=== PATIENT | male | born 1950 | race Caucasian/White ===

== ENCOUNTER → 2017-03-15 08:05 | Outpatient (CLI) | payer MEDICARE, SELFPAY ==
[2017-03-15 09:03] LABS: Basophils % 0.2 % (0.1-2.0); Eosinophils # 0.1 K/mm3 (0.0-0.4); Eosinophils % 1.5 % (0.1-12.0); Hematocrit 39.4 % (42.0-52.0); Hemoglobin 13.3 g/dL (14.1-18.0); Lymphocytes # 1.8 K/mm3 (0.7-4.5); Lymphocytes % 24.7 K/mm3 (10-50); Mean Corpuscular HGB Conc 33.7 g/dL (31.8-35.4); Mean Platelet Volume 7.7 fl (7.4-10.4); Monocytes # 0.6 K/mm3 (0.1-1.0); Monocytes % 7.6 % (1.7-9.3); Neutrophils # 4.9 K/mm3 (1.8-7.8); Platelet Count 151 K/mm3 (142-424); Red Blood Count 4.28 M/mm3 (4.60-6.20); Red Cell Distribution Width 14.2 % (11.5-17.5); White Blood Count 7.4 K/mm3 (4.8-10.8)
[2017-03-15 10:46] LABS: Alanine Aminotransferase 75 U/L (12-78); Albumin Level 3.3 gm/dL (3.4-5.0); Albumin/Globulin Ratio 1.1 (1.1-1.8); Alkaline Phosphatase 42 U/L (46-116); Anion Gap 10.2 mEq/L (5-15); Aspartate Amino Transferase 59 U/L (15-37); Bilirubin,Total 0.6 mg/dL (0.2-1.0); Blood Urea Nitrogen 23 mg/dL (7-18); Calcium 8.6 mg/dL (8.5-10.1); Carbon Dioxide 30 mmol/L (21.0-32.0); Chloride 101 mmol/L (98-107); Chol/HDL Ratio 3.4 (1-3.5); Cholesterol 169 mg/dL (140-200); Creatinine,Serum 1.02 mg/dL (0.70-1.30); Estimated Glomerular Filt Rate 73 ml/min (>60); GFR (African American) 88 ML/MIN (>60); Globulin 3.1 gm/dl (1.3-3.2); Glucose 180 mg/dL (74-106); HDL Cholesterol 50 mg/dL (27-67); LDL Cholesterol 43 mg/dL (0-130); Potassium 4.2 mmoL/L (3.5-5.1); Sodium 137 mmol/L (136-145); Thyroid Stimulating Hormone 3.51 uIU/ml (0.358-3.740); Total Protein,Serum 6.4 gm/dL (6.4-8.2); Triglycerides 380 mg/dL (30-200); VLDL Cholesterol 76 mg/dL (0-40)
[2017-03-15 13:19] LABS: Hemoglobin A1C 7.9 % (0.0-7.0)
== END ==
PROVIDERS: PCP Nurse Practitioner Family; Visit Provider Nurse Practitioner Family
DX: R06.09 Other forms of dyspnea (principal); E11.9 Type 2 diabetes mellitus without complications; E78.5 Hyperlipidemia, unspecified; I10 Essential (primary) hypertension; I25.119 Atherosclerotic heart disease of native coronary artery with unspecified angina pectoris; R60.9 Edema, unspecified
CPT/HCPCS: 36415; 80053; 80061; 83036; 84443; 85025

== ENCOUNTER → 2017-04-15 12:45 | Outpatient (CLI) | payer MEDICARE, SELFPAY ==
--- NOTE | 2017-04-15 12:50 | XR_ITS ---
XR sacroiliac joint BI min 3V CLINICAL INDICATION: ITS.REASON: SI JOINT DYSFUNCTION, HX BACK SURGERY ORDERING PHYSICIAN: Aimee Ulloa PATIENT AGE: 66 years COMPARISON: None FINDINGS: There is some mild sclerosis of the inferior aspect of the SI joint on both sides. There is no evidence of fusion of the SI joints. No lytic changes apparent. There are degenerative changes with facet arthritic changes in the lower lumbar spine and there are osteoarthritic changes of both hips as well. IMPRESSION: Mild osteoarthritis of the SI joints. Lumbar facet arthritic changes. Osteoarthritis of both hips
== END ==
PROVIDERS: PCP Internal Medicine Adolescent Medicine; Visit Provider Nurse Practitioner Family
DX: M53.3 Sacrococcygeal disorders, not elsewhere classified (principal); Z98.890 Other specified postprocedural states
CPT/HCPCS: 72202

== ENCOUNTER 2017-05-05 08:30 | Outpatient (RCR) | payer MEDICARE, SELFPAY ==
--- NOTE | 2017-04-20 15:41 | HMH.PTOPEV ---
Rehab Outpatient Evaluation Rehab OP Evaluation Start: 04/20/17 11:49 Freq: Status: Active Protocol: Document 04/20/17 11:49 CARLOS (Rec: 04/20/17 12:38 CARLOS [id number]) Electronically Signed By Dave Palma, PT 04/20/17 11:49 Outpatient Therapy Subjective History Subjective History Mr. Luis is a 66 year old male who presents to outpatient PT with LB and bilateral leg pain R>L of insidious onset since summer 2016 that progressively gotten worse. Pt. went to his MD Mar, who ordered an X-ray indicating arthritic changes, and recommended PT. PMH include open heart (1997), lumbar spine L2-L3 (1996), and knee (2001) surgeries. Pt. is currently taking pain medication that provides some relief. Pt. will benefit from skilled outpatient PT on BLE/ lumbar stretching and strengthening, modalities, and pain controlling interventions. Chief Complaint Pain Symptom Type Ache Sharp Dull Numbness Tingling Symptoms Relieved By Heat Prescription Meds Symptoms Aggravated By Sitting Standing Bending/Stooping Physical Activity Twisting Walking Prior Functional Limitations None Current Functional Limitations Lifting Housework Driving Sleeping Standing Sitting Walking Stairs Bending/Stooping Symptom Description Constant but Variable Level of pain today (0-10) 2 Pain scale - at its best (0-10) 1 Pain scale - at its worst (0-10) 9 Lumbopelvic Eval Posture Thoracic Spine Posture Standing Position Increased Kyphosis Lumbar Spine Posture Standing Position Flattened Decreased Lordosis Assistive device
== END 2017-05-05 08:31 | disposition home or self-care (01) ==
LOC: PT 08:30
PROVIDERS: Family Provider Internal Medicine Adolescent Medicine; PCP Internal Medicine Adolescent Medicine; Visit Provider Nurse Practitioner Family
DX: M53.3 Sacrococcygeal disorders, not elsewhere classified (principal)
CPT/HCPCS: 97010; 97014; 97110; G0283

== ENCOUNTER → 2017-07-28 13:34 | Outpatient (CLI) | payer MEDICARE, SELFPAY | PROVIDERS: Visit Provider Urology | DX: R97.20 Elevated prostate specific antigen [PSA] (principal) | CPT/HCPCS: 36415; G0103 ==

== ENCOUNTER → 2018-03-17 07:27 | Outpatient (CLI) | payer MEDICARE, SELFPAY ==
[2018-03-17 09:20] LABS: Hemoglobin A1C 9.9 % (0.0-7.0)
[2018-03-17 09:48] LABS: Alanine Aminotransferase 60 U/L (12-78); Albumin Level 3.6 gm/dL (3.4-5.0); Albumin/Globulin Ratio 1.1 (1.1-1.8); Alkaline Phosphatase 46 U/L (46-116); Anion Gap 14.1 mEq/L (5-15); Aspartate Amino Transferase 25 U/L (15-37); Blood Urea Nitrogen 20 mg/dL (7-18); Calcium 9.3 mg/dL (8.5-10.1); Carbon Dioxide 26 mmol/L (21.0-32.0); Chloride 98 mmol/L (98-107); Chol/HDL Ratio 7.3 (1-3.5); Cholesterol 299 mg/dL (140-200); Creatinine,Serum 0.92 mg/dL (0.70-1.30); Estimated Glomerular Filt Rate 82 ml/min (>60); GFR (African American) 99 ML/MIN (>60); Globulin 3.2 gm/dl (1.3-3.2); Glucose 356 mg/dL (74-106); HDL Cholesterol 41 mg/dL (27-67); LDL Cholesterol 192 mg/dL (0-130); Potassium 4.1 mmoL/L (3.5-5.1); Prostate Specific Ag Screen 0.4 ng/mL (0.0-4.0); Sodium 134 mmol/L (136-145); Thyroid Stimulating Hormone 2.83 uIU/ml (0.358-3.740); Total Protein,Serum 6.8 gm/dL (6.4-8.2); Triglycerides 328 mg/dL (30-200); VLDL Cholesterol 66 mg/dL (0-40)
[2018-03-17 10:00] LABS: Basophils % 0.2 % (0.1-2.0); Eosinophils # 0.1 K/mm3 (0.0-0.4); Eosinophils % 1.1 % (0.1-12.0); Hematocrit 46.2 % (42.0-52.0); Hemoglobin 15.1 g/dL (14.1-18.0); Lymphocytes % 29.5 % (10-50); Mean Corpuscular HGB Conc 32.6 g/dL (31.8-35.4); Mean Corpuscular Hemoglobin 30.8 pg (27.0-31.2); Mean Corpuscular Volume 94.4 fl (80-94); Monocytes # 0.6 K/mm3 (0.1-1.0); Monocytes % 8.2 % (1.7-9.3); Neutrophils # 4.1 K/mm3 (1.8-7.8); Neutrophils % 61.1 % (37.0-80.0); Platelet Count 148 K/mm3 (142-424); Red Blood Count 4.89 M/mm3 (4.60-6.20); White Blood Count 6.7 K/mm3 (4.8-10.8)
[2018-03-18 08:22] LABS: Creatinine, Urine 82.4 mg/dL (Not Estab.)
== END ==
PROVIDERS: Visit Provider Nurse Practitioner Family
DX: R60.9 Edema, unspecified (principal); E11.9 Type 2 diabetes mellitus without complications; E78.5 Hyperlipidemia, unspecified; R35.0 Frequency of micturition; Z12.5 Encounter for screening for malignant neoplasm of prostate
CPT/HCPCS: 36415; 80053; 80061; 82043; 82570; 83036; 84443; 85025; G0103

== ENCOUNTER → 2018-06-08 07:17 | Outpatient (CLI) | payer MEDICARE, SELFPAY ==
[2018-06-08 08:50] LABS: Anion Gap 13.4 mEq/L (5-15); Blood Urea Nitrogen 25 mg/dL (7-18); Calcium 9.3 mg/dL (8.5-10.1); Carbon Dioxide 29 mmol/L (21.0-32.0); Chloride 100 mmol/L (98-107); Chol/HDL Ratio 7.6 (1-3.5); Cholesterol 298 mg/dL (140-200); Creatinine,Serum 1.08 mg/dL (0.70-1.30); Estimated Glomerular Filt Rate 68 ml/min (>60); GFR (African American) 82 ML/MIN (>60); Glucose 186 mg/dL (74-106); HDL Cholesterol 39 mg/dL (27-67); Potassium 4.4 mmoL/L (3.5-5.1); Sodium 138 mmol/L (136-145)
[2018-06-08 08:52] LABS: Triglycerides 545 mg/dL (30-200)
[2018-06-08 16:17] LABS: Hemoglobin A1C 7.6 % (0.0-7.0)
== END ==
PROVIDERS: Visit Provider Nurse Practitioner Family
DX: E11.65 Type 2 diabetes mellitus with hyperglycemia (principal); E78.2 Mixed hyperlipidemia; R60.9 Edema, unspecified
CPT/HCPCS: 36415; 80048; 80061; 83036

== ENCOUNTER → 2018-10-30 10:31 | Outpatient (CLI) | payer MEDICARE, SELFPAY ==
--- NOTE | 2018-10-30 10:37 | CA_ITS ---
APPROVED REPORT Right Lower Extremity Venous Study for DVT. Tooth Polisher: ISAIAH Indications Lower Extremity Pain: Right Lower Extremity Edema: Bilateral Risk Factors Prior Phlebitis/DVT Past History DVT : Vein Imaging CFV (R): compressive, spontaneous, phasic, augmentation FEM (R): compressive, spontaneous, phasic, augmentation POP (R): compressive, spontaneous, phasic, augmentation PTV (R): Non-Compressible, Thrombus GSV (R): compressive, spontaneous, phasic, augmentation Peroneals (R):Non-Compressible, Thrombus GAS (R): Non-Compressible, Thrombus Findings Thrombus seen right posterior tibia vein and right peroneal vein other deep veins are negative. There is also thrombus seen in the superficial calf veins. Conclusion Thrombus seen right posterior tibia vein and right peroneal vein other deep veins are negative. There is also thrombus seen in the superficial calf veins. Critical Notification Critical Value: Yes Physician Notified Date: 10/30/2018 Time: 11:00 Physician Name: Lillykasie Ulloa Electronically signed by : Piyush Freeman MD 11/01/2018 19:44:53
--- NOTE | 2018-10-30 11:00 | XR_ITS ---
PROCEDURE: XR HIP RT 2-3V W/PELVIS CLINICAL INDICATION: RT HIP PAIN COMPARISON: No exams were available for comparison FINDINGS: There are moderate osteoarthritic changes of both hips as seen on the AP view of the pelvis. AP and abduction views of the right hip show osteoarthritic change. No fracture or dislocation. No lytic or blastic change. There is generalized vascular calcification. IMPRESSION: Osteoarthritis of the hips Dictated by: Piyush Freeman MD 10/30/2018 11:38 Electronically signed by Piyush Freeman MD in [place] 10/30/2018 11:38
[2018-10-30 13:23] LABS: Basophils % 0.1 % (0.1-2.0); Eosinophils # 0.1 K/mm3 (0.0-0.4); Eosinophils % 1.7 % (0.1-12.0); Hematocrit 45.8 % (42.0-52.0); Hemoglobin 15.4 g/dL (14.1-18.0); Lymphocytes # 1.5 K/mm3 (0.7-4.5); Lymphocytes % 20.9 % (10-50); Mean Corpuscular HGB Conc 33.7 g/dL (31.8-35.4); Mean Corpuscular Hemoglobin 31.8 pg (27.0-31.2); Mean Corpuscular Volume 94.4 fl (80-94); Mean Platelet Volume 7.2 fl (7.4-10.4); Monocytes # 0.6 K/mm3 (0.1-1.0); Monocytes % 7.7 % (1.7-9.3); Neutrophils % 69.6 % (37.0-80.0); Platelet Count 146 K/mm3 (142-424); Red Blood Count 4.85 M/mm3 (4.60-6.20); Red Cell Distribution Width 14.5 % (11.5-17.5); White Blood Count 7.2 K/mm3 (4.8-10.8)
[2018-10-30 13:31] LABS: Alanine Aminotransferase 36 U/L (12-78); Albumin Level 3.5 gm/dL (3.4-5.0); Albumin/Globulin Ratio 1.1 (1.1-1.8); Alkaline Phosphatase 47 U/L (46-116); Anion Gap 11.6 mEq/L (5-15); Aspartate Amino Transferase 21 U/L (15-37); Bilirubin,Total 0.6 mg/dL (0.2-1.0); Blood Urea Nitrogen 17 mg/dL (7-18); Calcium 9.3 mg/dL (8.5-10.1); Carbon Dioxide 30 mmol/L (21.0-32.0); Chloride 103 mmol/L (98-107); Estimated Glomerular Filt Rate 84 ml/min (>60); GFR (African American) 101 ML/MIN (>60); Globulin 3.3 gm/dl (1.3-3.2); Glucose 160 mg/dL (74-106); Potassium 4.6 mmoL/L (3.5-5.1); Sodium 140 mmol/L (136-145); Total Protein,Serum 6.8 gm/dL (6.4-8.2)
[2018-10-30 13:44] LABS: Activated Partial Thrombo Time 24.9 seconds (23.6-34.0); INR 0.97 (0.9-1.1); Prothrombin Time 10.1 seconds (9.4-11.8)
[2018-11-02 07:09] LABS: Anti-Thrombin III Antigen 84 % (72-124); Protein C Antigen 96 % (60-150); Protein C Functional 105 % (73-180); Protein S Antigen, Total 102 % (60-150); Protein S Functional 124 % (63-140); Protein S, Free 130 % (57-157)
== END ==
PROVIDERS: PCP Internal Medicine Adolescent Medicine; Visit Provider Nurse Practitioner Family
DX: M25.551 Pain in right hip (principal); M79.661 Pain in right lower leg; I82.431 Acute embolism and thrombosis of right popliteal vein; Z86.718 Personal history of other venous thrombosis and embolism
CPT/HCPCS: 36415; 73502; 80053; 81241; 85025; 85301; 85302; 85305; 85306; 85610; 85730; 93971

== ENCOUNTER → 2019-02-23 07:22 | Outpatient (CLI) | payer MEDICARE, SELFPAY ==
[2019-02-23 08:04] LABS: Basophils % 0.2 % (0.1-2.0); Eosinophils # 0.2 K/mm3 (0.0-0.4); Eosinophils % 1.7 % (0.1-12.0); Hematocrit 46.5 % (42.0-52.0); Hemoglobin 15.5 g/dL (14.1-18.0); Lymphocytes % 22.4 % (10-50); Mean Corpuscular HGB Conc 33.2 g/dL (31.8-35.4); Mean Corpuscular Hemoglobin 28.6 pg (27.0-31.2); Mean Corpuscular Volume 86.2 fl (80-94); Mean Platelet Volume 8.2 fl (7.4-10.4); Monocytes # 0.6 K/mm3 (0.1-1.0); Monocytes % 6.9 % (1.7-9.3); Neutrophils # 6.1 K/mm3 (1.8-7.8); Neutrophils % 68.9 % (37.0-80.0); Platelet Count 195 K/mm3 (142-424); Red Cell Distribution Width 14.3 % (11.5-17.5); White Blood Count 8.9 K/mm3 (4.8-10.8)
[2019-02-23 09:21] LABS: Alanine Aminotransferase 26 U/L (12-78); Albumin Level 3.5 gm/dL (3.4-5.0); Alkaline Phosphatase 62 U/L (46-116); Anion Gap 12.3 mEq/L (5-15); Aspartate Amino Transferase 7 U/L (15-37); Bilirubin,Total 0.4 mg/dL (0.2-1.0); Blood Urea Nitrogen 22 mg/dL (7-18); Calcium 8.9 mg/dL (8.5-10.1); Carbon Dioxide 29 mmol/L (21.0-32.0); Chloride 102 mmol/L (98-107); Chol/HDL Ratio 6.2 (1-3.5); Cholesterol 261 mg/dL (140-200); Creatinine,Serum 0.91 mg/dL (0.70-1.30); Estimated Glomerular Filt Rate 82 ml/min (>60); GFR (African American) 100 ML/MIN (>60); Globulin 3.4 gm/dl (1.3-3.2); Glucose 201 mg/dL (74-106); HDL Cholesterol 42 mg/dL (27-67); LDL Cholesterol 166 mg/dL (0-130); Potassium 4.3 mmoL/L (3.5-5.1); Sodium 139 mmol/L (136-145); Thyroid Stimulating Hormone 2.71 uIU/ml (0.358-3.740); Total Protein,Serum 6.9 gm/dL (6.4-8.2); Triglycerides 267 mg/dL (30-200); VLDL Cholesterol 53 mg/dL (0-40)
[2019-02-23 11:22] LABS: Hemoglobin A1C 8.1 % (0.0-7.0)
[2019-02-24 09:10] LABS: Creatinine, Urine 58.9 mg/dL (Not Estab.); Microalbumin, Urine <3.0 ug/mL (Not Estab.)
== END ==
PROVIDERS: Visit Provider Nurse Practitioner Family
DX: E11.65 Type 2 diabetes mellitus with hyperglycemia (principal); E78.2 Mixed hyperlipidemia; I10 Essential (primary) hypertension; M25.50 Pain in unspecified joint; N40.0 Benign prostatic hyperplasia without lower urinary tract symptoms; I82.431 Acute embolism and thrombosis of right popliteal vein
CPT/HCPCS: 36415; 80053; 80061; 82043; 82570; 83036; 84153; 84443; 85025

== ENCOUNTER → 2019-03-09 08:57 | Outpatient (CLI) | payer MEDICARE, SELFPAY ==
--- NOTE | 2019-03-09 09:02 | XR_ITS ---
PROCEDURE: XR HAND LT MIN 3V CLINICAL INDICATION: thumb pain COMPARISON: XR WRIST LT MIN 3V from 03/09/2019 FINDINGS: No fracture or dislocation. No lytic or blastic change. There is normal mineralization. There are mild osteoarthritic changes at the 1st metacarpal-carpal junction and the 1st metacarpophalangeal junction as well as the interphalangeal joint of the. Mild osteoarthritis also involves the PIP joints of the fingers. A small well-circumscribed calcific density is present along the ulnar aspect of the PIP joint of the 4th digit and could be due to an old fracture. IMPRESSION: Osteoarthritic changes as described above of the hand and wrist Dictated by: Piyush Freeman MD 03/09/2019 09:44 Electronically signed by Piyush Freeman MD in [place] 03/09/2019 09:44
== END ==
PROVIDERS: PCP Nurse Practitioner Family; Visit Provider Orthopaedic Surgery
DX: M25.532 Pain in left wrist (principal); M79.642 Pain in left hand
CPT/HCPCS: 73110; 73130

== ENCOUNTER → 2019-04-16 09:59 | Outpatient (CLI) | payer MEDICARE, SELFPAY ==
--- NOTE | 2019-04-16 10:03 | XR_ITS ---
PROCEDURE: XR HIP LT 2-3V W/PELVIS CLINICAL INDICATION: hip pain Left hip pain COMPARISON: XR HIP RT 2-3V W/PELVIS from 10/30/2018 FINDINGS: An AP view of the pelvis shows mild bilateral osteoarthritis of the hips with bilateral femoral artery calcification. No acute fracture or dislocation. No lytic or blastic change. There are degenerative changes in the lumbar spine IMPRESSION: Mild osteoarthritis of the hips Dictated by: Piyush Freeman MD 04/16/2019 10:48 Electronically signed by Piyush Freeman MD in [place] 04/16/2019 10:48
== END ==
PROVIDERS: PCP Nurse Practitioner Family; Visit Provider Orthopaedic Surgery
DX: M25.552 Pain in left hip (principal)
CPT/HCPCS: 73502

== ENCOUNTER → 2019-09-14 07:12 | Outpatient (CLI) | payer MEDICARE, SELFPAY ==
[2019-09-14 07:38] LABS: Basophils % 0.3 % (0.1-2.0); Eosinophils # 0.2 K/mm3 (0.0-0.4); Eosinophils % 2.3 % (0.1-12.0); Hematocrit 47.1 % (42.0-52.0); Hemoglobin 16.3 g/dL (14.1-18.0); Lymphocytes # 2.2 K/mm3 (0.7-4.5); Lymphocytes % 29.7 % (10-50); Mean Corpuscular HGB Conc 34.6 g/dL (31.8-35.4); Mean Corpuscular Hemoglobin 30.6 pg (27.0-31.2); Mean Corpuscular Volume 88.2 fl (80-94); Mean Platelet Volume 7.9 fl (7.4-10.4); Monocytes # 0.5 K/mm3 (0.1-1.0); Monocytes % 6.2 % (1.7-9.3); Neutrophils # 4.5 K/mm3 (1.8-7.8); Neutrophils % 61.6 % (37.0-80.0); Platelet Count 148 K/mm3 (142-424); Red Blood Count 5.34 M/mm3 (4.60-6.20); Red Cell Distribution Width 14.5 % (11.5-17.5); White Blood Count 7.3 K/mm3 (4.8-10.8)
[2019-09-14 07:52] LABS: Creatinine,Urine Random 64 mg/dL (Not Estab.)
[2019-09-14 07:54] LABS: Microalbumin/Creatinine Ratio 11.2
[2019-09-14 08:27] LABS: Chloride 100 mmol/L (98-107); Sodium 140 mmol/L (136-145)
[2019-09-14 08:29] LABS: Blood Urea Nitrogen 20 mg/dl (9-20); Estimated Glomerular Filt Rate 83 ml/min (>60); GFR (African American) 101 ML/MIN (>60)
[2019-09-14 08:30] LABS: Alanine Aminotransferase 41 U/L (12-78); Albumin Level 4.2 g/dl (3.5-5.0); Albumin/Globulin Ratio 1.5 (1.1-1.8); Alkaline Phosphatase 57 U/L (38-126); Aspartate Amino Transferase 30 U/L (17-59); Bilirubin,Total 0.6 mg/dl (0.2-1.3); Calcium 9.6 mg/dl (8.4-10.2); Carbon Dioxide 32 mmol/L (22.0-30.0); Chol/HDL Ratio 6.1 (1-3.5); Cholesterol 289 mg/dl (140-200); Globulin 2.8 g/dL (1.3-3.2); Glucose 202 mg/dl (74-100); HDL Cholesterol 47 mg/dl (40-60)
[2019-09-14 08:36] LABS: Triglycerides 477 mg/dl (30-150)
[2019-09-14 09:01] LABS: Hemoglobin A1C 8.7 % (4.0-6.0)
[2019-09-14 09:28] LABS: Prostate Specific Ag Screen 3.9 ng/ml (0.0-4.0)
[2019-09-14 09:40] LABS: Direct LDL Cholesterol 179.98 mg/dL (100-129)
== END ==
PROVIDERS: Visit Provider Nurse Practitioner Family
DX: E11.65 Type 2 diabetes mellitus with hyperglycemia (principal); E78.2 Mixed hyperlipidemia; I10 Essential (primary) hypertension; N40.0 Benign prostatic hyperplasia without lower urinary tract symptoms; R97.20 Elevated prostate specific antigen [PSA]; Z79.84 Long term (current) use of oral hypoglycemic drugs; Z86.718 Personal history of other venous thrombosis and embolism; Z12.5 Encounter for screening for malignant neoplasm of prostate
CPT/HCPCS: 36415; 80053; 80061; 82043; 82570; 83036; 85025; G0103

== ENCOUNTER → 2020-01-08 07:03 | Outpatient (CLI) | payer MEDICARE, SELFPAY ==
[2020-01-08 08:05] LABS: Chloride 101 mmol/L (98-107); Sodium 142 mmol/L (136-145)
[2020-01-08 08:07] LABS: Alanine Aminotransferase 28 U/L (12-78); Albumin Level 4.5 g/dl (3.5-5.0); Alkaline Phosphatase 59 U/L (38-126); Aspartate Amino Transferase 23 U/L (17-59); Bilirubin,Total 0.7 mg/dl (0.2-1.3); Blood Urea Nitrogen 17 mg/dl (9-20); Estimated Glomerular Filt Rate 74 ml/min (>60); GFR (African American) 89 ML/MIN (>60)
[2020-01-08 08:08] LABS: Albumin/Globulin Ratio 1.6 (1.1-1.8); Calcium 9.9 mg/dl (8.4-10.2); Carbon Dioxide 34 mmol/L (22.0-30.0); Chol/HDL Ratio 3.3 (1-3.5); Cholesterol 200 mg/dl (140-200); Globulin 2.9 g/dL (1.3-3.2); Glucose 139 mg/dl (74-100); HDL Cholesterol 60 mg/dl (40-60); Total Protein,Serum 7.4 g/dl (6.3-8.2); Triglycerides 190 mg/dl (30-150); VLDL Cholesterol 38 mg/dL (0-40)
[2020-01-08 08:19] LABS: Direct LDL Cholesterol 112.77 mg/dL (100-129)
[2020-01-08 09:11] LABS: Prostate Specific Ag, Diagnost 2.78 ng/ml (0.0-4.0)
[2020-01-08 09:15] LABS: Hemoglobin A1C 6.2 % (4.0-6.0)
== END ==
PROVIDERS: Visit Provider Nurse Practitioner Family
DX: E78.2 Mixed hyperlipidemia (principal); E11.65 Type 2 diabetes mellitus with hyperglycemia; R97.20 Elevated prostate specific antigen [PSA]
CPT/HCPCS: 36415; 80053; 80061; 83036; 84153

== ENCOUNTER → 2020-02-20 10:08 | Outpatient (CLI) | payer MEDICARE, SELFPAY ==
--- NOTE | 2020-02-20 10:11 | US_ITS ---
APPROVED REPORT Exam Type: Lower Extremity Segmental Pressures Solder Technician: Jelena Oneal RVT Indications Claudication: Bilaterally Rest Pain: Bilaterally Numbness/Tingling Edema History of Smoking CAD Risk Factors Hypertension CAD Hyperlipidemia History of Smoking Pressures/Indices Right Indices Left Indices Brachial 140.00 mmHg Brachial 141.00 mmHg Low Thigh 107.00 mmHg 0.76 Low Thigh 98.00 mmHg 0.70 Calf 107.00 mmHg 0.76 Calf 99.00 mmHg 0.70 Ankle(PT) 111.00 mmHg 0.79 Ankle(PT) 98.00 mmHg 0.70 Ankle(DP) 89.00 mmHg 0.63 Ankle(DP) 118.00 mmHg 0.84 Digit 87.00 mmHg 0.62 Digit 86.00 mmHg 0.61 Findings RT TAMMY:0.79 LT TAMMY:0.70 RT TBI:0.62 LT TBI:0.61 NORMAL WAVEFORMS BILATERAL DIMINISHED PULSES ON THE LEFT Conclusion RT TAMMY:0.79 LT TAMMY:0.70 RT TBI:0.62 LT TBI:0.61 NORMAL WAVEFORMS BILATERAL DIMINISHED PULSES ON THE LEFT Low bilateral ABIc/w moderate arterial disease Electronically signed by : Piyush Freeman MD 02/25/2020 17:32:27
== END ==
PROVIDERS: PCP Nurse Practitioner Family; Visit Provider Nurse Practitioner Family
DX: I73.9 Peripheral vascular disease, unspecified (principal)
CPT/HCPCS: 93923

== ENCOUNTER → 2020-05-14 08:22 | Outpatient (CLI) | payer MEDICARE, SELFPAY ==
--- NOTE | 2020-05-14 08:29 | XR_ITS ---
PROCEDURE: XR HAND RT MIN 3V CLINICAL INDICATION: RT hand/5th digit pain COMPARISON: CR XR HAND LT MIN 3V from 03/09/2019 FINDINGS: No fracture or dislocation. No lytic or blastic change. There is normal mineralization. Hyper trophic changes are present involving the distal aspect of the 3rd metacarpal. Osteophyte formation is present at this region. Mild osteoarthritic change at the 3rd metacarpophalangeal joint. The remaining joint spaces are well preserved. Other findings:None. IMPRESSION: Osteoarthritic change at the 3rd metacarpophalangeal joint otherwise negative Dictated by: Piyush Freeman MD 05/14/2020 09:24 Piyush Freeman MD in [place] 05/14/2020 09:24
[2020-05-14 10:01] LABS: Coronavirus 19 IgG Antibody Positive (Negative); Coronavirus 19 IgM Antibody Negative (Negative)
== END ==
PROVIDERS: Internal Medicine Gastroenterology; PCP Nurse Practitioner Family; Visit Provider Orthopaedic Surgery
DX: M79.641 Pain in right hand (principal); Z01.818 Encounter for other preprocedural examination; Z20.822 Contact with and (suspected) exposure to COVID-19
CPT/HCPCS: 36415; 73130; 86328

== ENCOUNTER 2020-05-16 09:58 | Day surgery (SDC) | payer MEDICARE, SELFPAY ==
[2020-05-13 13:37] VITALS: BMI 36.8
[2020-05-16] VITALS (8 sets, daily range): BP systolic 107–154; BP diastolic 55–81; PULSE 57–68; RESP 14–18; TEMP 36.4–37.2; O2SAT 95–99
[2020-05-16 10:25] LABS: POC Glucose,Bedside 150 (70-110)
--- NOTE | 2020-05-16 10:49 | HMH.ANESCL ---
[facility] Anesthesia Checklist - Patient Identification Patient Identification: Arm Band - Structural Data Admitted From: Home Planned Operative Procedure/s: EGD, colonoscopy Consent for Planned Operative Procedure(s) Verified: Yes - NPO Status Verified Time NPO: 00:00 - Airway Assessment Dentition: Good Dentition - Neurological Assessment Level of Consciousness: Awake Hx Seizures: No Numbness or tingling in extremities: No - Anesthesia Plan Anesthesia Risk discussed: Yes Anesthesia Plan: Verified ASA Class: III Anesthesia Type: MAC [facility] History I have reviewed the patient's past medical history: Yes Medical History: Reports:: Coronary Artery Disease, Diabetes Mellitus Type 2, Hyperlipidemia, Hypertension, Myocardial Infarction Denies:: Cancer, Diabetes Mellitus Type 1, Internal Pacemaker, MRSA, Seizures *Have you ever received a pneumonia vaccine?: Yes *Have you received a flu vaccine this season?: Yes Other Medical History: Reports: Arthritis Anesthesia experience/problems:: None Laterality Cases: Bilateral: ACL Repair Other Surgeries: Yes: No Previous Surgery, Colonoscopy, Other. No: Pacemaker Amputation: No Fractures: No - *Social History Last grade of school completed: High school graduate Smoking Status: Never smoker Alcohol Intake: current Alcohol Intake Frequency:: 0-2 drinks per day Substance Use Type: denies use *Occupational Status:: retired Housing: house Household Members: spouse *Travel in the last 8 weeks: None Family Hx:: No significant family history
--- NOTE | 2020-05-16 11:13 | HMH.PROC ---
[facility] Procedure Note Procedure Note:: Upper Endoscopy Procedure Report: Esophagogastroduodenoscopy with cold biopsies and TTS balloon dilation Endoscopost: Shahzad Lanza II, MD Referring Physician: Bernard Doan MD/VERO Garcia/Frantz Naidu M.D. Date of Procedure: May 16, 2020 Equipment: Olympus GIF 190 standard upper endoscope Sedation: MAC sedation Indications: Mr. Luis is a 69-year-old gentleman who has had both cardiac and noncardiac chest pain in the past. He does have a history of coronary artery disease with coronary stent placement. He is on Xarelto. Recently, he did see cardiology who opted to advise him to do EGD before heart catheterization. The patient does report exertional chest pain and some associated shortness of breath. He does state that he had a normal EKG and nuclear cardiac stress test within the last couple of months. Dr. Doan recommended EGD prior to catheterization. The patient does report some belching and bloating. He has some dysphagia to solids and liquids. He has some globus sensation. He reports no heartburn or significant reflux. He did have an EGD with ar and October 2016 and had esophageal dyskinesia. Procedure: Prior to the procedure, a history and physical exam was performed, and patient's medications and allergies were reviewed. The risks, benefits and alternatives of the sedation and procedure were discussed with the patient. All questions were answered and informed consent was obtained. The patient was brought to the procedure room. Patient identification and proposed procedure were verified by the physician and the nurse. The patient was placed in a left lateral decubitus position and the scope was passed under direct vision. Throughout the procedure, the patient's blood pressure, pulse, and oxygen saturations were monitored continuously. The upper GI endoscopy was accomplished without difficulty. The patient tolerated the procedure well. Findings: The scope was passed directly into the upper esophagus and advanced to the third portion of the duodenum. The post bulbar duodenum and duodenal bulb were normal with normal mucosa and conniventes. The scope was withdrawn through a normal duodenal bulb and pylorus into the stomach. There was evidence of bile reflux with moderate linear reactive gastropathy of the antrum and body of the stomach. There was some chronic gastritis of the body and fundus of the stomach. Upon retroflexion there was a very small 1 to 2 cm sliding hiatal hernia. 2 biopsies were taken in the antrum and along the lesser curvature for histology to rule out gastritis and/or H pylori. The scope was then withdrawn into the esophagus. There was a serrated Z-line with a single tongue of salmon-colored mucosa that was biopsied to rule out intestinal metaplasia. There were strong tertiary contractions and evidence of moderate esophageal dysmotility. The entire esophagus was dilated to 60 Japanese/20 mm with a TTS hydrostatic balloon. There was some spasm at the cricopharyngeus. The remainder of the esophageal mucosa was normal. Impression: 1. 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 Bile reflux with linear reactive gastropathy and chronic gastritis Plan: The patient does likely have some esophageal dyskinesia. However, his exertional chest pain that has worsened with associated shortness of breath is typically cardiac. I did indicate to the patient that we typically would like to rule this out before endoscopy with cardiac catheterization. I would recommend that he see cardiology locally or with Dr. Doan to rule out unstable angina especially with his history of coronary disease/CASHD. We will discuss additional dietary measures and treatment of his functional GERD and esophageal spasm. I will proceed with screening colonoscopy. I would like for him to return on his Xarelto/anticoagulatio
--- NOTE | 2020-05-16 11:36 | HMH.PROC ---
[facility] Procedure Note Procedure Note:: Colonoscopy Procedure Report: Colonoscopy with cold snare polypectomy Endoscopist: Shahzad Lanza II, MD Referring physician: VERO Garcia/Frantz Naidu M.D. Date of Procedure: May 16, 2020 Equipment: Olympus 190 variable stiffness pediatric colonoscope Sedation: MAC sedation Indication: Mr. Luis is a 69-year-old gentleman who is here for follow-up screening/surveillance colonoscopy. The patient does have a personal history of adenomatous colon polyps. His last colonoscopy and October 2016 revealed 7 polyps (tubular adenomas x7) which were removed. The patient does have some obstipation. The patient does report some bloating and belching. He reports no rectal bleeding, abdominal pain, weight loss or family history of colon cancer. Procedure: Prior to the procedure, a history and physical exam was performed, and patient's medications and allergies were reviewed. The risks, benefits and alternatives of the sedation and procedure were discussed with the patient. All questions were answered and informed consent was obtained. The patient was brought to the procedure room. Patient identification and proposed procedure were verified by the physician and the nurse. The patient was placed in a left lateral decubitus position and the scope was passed under direct vision. Throughout the procedure, the patient's blood pressure, pulse, and oxygen saturations were monitored continuously. The colonoscopy was accomplished without difficulty. The patient tolerated the procedure well. Findings: On digital rectal examination there was normal rectal tone. There were no external hemorrhoids. The colonoscope was introduced through the anal canal to the rectum and advanced to the cecum. The ileocecal valve and appendiceal orifice were identified. The scope was advanced a short distance into the ileum which appeared grossly normal. The scope was then withdrawn into the colon. There were a total of 3 polyps (cecum x2 (3 and 4 mm) and descending x1 (3 mm)) which were all removed via cold snare polypectomy. The remainder of the cecum, ascending, transverse, descending, sigmoid and rectum were grossly normal. There were no other mucosal abnormalities. Upon retroflexion within the rectum there were grade 1-2 internal hemorrhoids.The preparation was excellent throughout with [place] Preparation Score of 9. The cecal time was 12 minutes. Impression: 1. Diminutive colonic polyps x3 2. Grade 1-2 internal hemorrhoids Plan: I will follow up the polyp histology. Based upon his cardiac disease and comorbidities, we will need to determine whether further surveillance is warranted. I would encourage a fiber bowel regimen on a long-term daily maintenance basis.
--- NOTE | 2020-05-16 11:38 | HMH.ANESI ---
[facility] Anesthesia Record Part I Intake, IV Amount: 700 Estimated blood loss (mL): 0 Urine output (mL): 0 Blood Pressure: 130/68 SaO2: 97 Pulse Rate: 62 Respiratory Rate: 14 Temperature: 98.9 F Patient is:: Awake Stable to PACU at:: 11:34
--- NOTE | 2020-05-16 13:19 | P.PN_ITS ---
[facility] Anesthesia Record Part II Discharge Time: 12:24 Destination: Surgical Day Care (OP Surgery) PACU nurse assessment reviewed?: Yes Patient Condition:: Good Anesthesia Complications:: None Swallowing reflex intact?: Yes Cyanosis?: No Blood Pressure: 131/67 Pulse Rate: 57 Temperature: 98.2 F Mental Status: Alert & Oriented Pain level:: 0 Nausea and/or vomitting:: None Intake, IV Amount: 700
== END 2020-05-16 12:48 | disposition home or self-care (01) ==
LOC: OUTP 09:59
PROVIDERS: PCP Nurse Practitioner Family; Visit Provider Internal Medicine Gastroenterology
PROC: 0DJ08ZZ Inspection of Upper Intestinal Tract, Via Natural or Artificial Opening Endoscopic (ICD-10-PCS; CPT 43235; principal; 2020-05-16 11:00)
DX: Z12.11 Encounter for screening for malignant neoplasm of colon (principal); Z86.010 Personal history of colon polyps; K63.5 Polyp of colon; K64.0 First degree hemorrhoids; K21.9 Gastro-esophageal reflux disease without esophagitis; K22.4 Dyskinesia of esophagus; J39.2 Other diseases of pharynx; K31.9 Disease of stomach and duodenum, unspecified; K29.50 Unspecified chronic gastritis without bleeding; I25.10 Atherosclerotic heart disease of native coronary artery without angina pectoris; E11.9 Type 2 diabetes mellitus without complications; I10 Essential (primary) hypertension
CPT/HCPCS: 43239; 43249; 45385; 82962; 88305; C1726

== ENCOUNTER → 2020-08-14 09:38 | Outpatient (CLI) | payer MEDICARE, SELFPAY ==
--- NOTE | 2020-08-14 09:42 | XR_ITS ---
PROCEDURE: XR WRIST LT MIN 3V CLINICAL INDICATION: LT wrist pain COMPARISON: CR XR WRIST LT MIN 3V from 03/09/2019 FINDINGS: No fracture or dislocation. No lytic or blastic change. There is normal mineralization. The joint spaces are well-preserved. No significant degenerative/arthritic changes. No erosive changes evident. Other findings:None. IMPRESSION: No acute findings. Dictated by: Piyush Freeman MD 08/14/2020 14:53 Piyush Freeman MD in [place] 08/14/2020 14:53
== END ==
PROVIDERS: PCP Nurse Practitioner Family; Visit Provider Orthopaedic Surgery
DX: M25.532 Pain in left wrist (principal)
CPT/HCPCS: 73110

== ENCOUNTER → 2020-08-18 16:19 | Outpatient (CLI) | payer MEDICARE, SELFPAY ==
--- NOTE | 2020-08-18 | XR_ITS ---
PROCEDURE: XR SHOULDER RT MIN 2V CLINICAL INDICATION: ACUTE RIGHT SHOULDER PAIN COMPARISON: CR [id number] VIEWS from 09/11/2013 FINDINGS: No fracture or dislocation. No lytic or blastic change. There is normal mineralization. Osteoarthritic changes are present involving the acromioclavicular and glenohumeral joint. Prominent bony hypertrophy is present along the inferior aspect of the AC joint especially the distal clavicle and there is bony hypertrophy along the greater tuberosity region of the humerus with subacromial stenosis. The Other findings:None. IMPRESSION: Osteoarthritis with subacromial stenosis Dictated by: Piyush Freeman MD 08/18/2020 16:55 Piyush Freeman MD in [place] 08/18/2020 16:55
== END ==
PROVIDERS: PCP Nurse Practitioner Family; Visit Provider Nurse Practitioner Family
DX: G89.11 Acute pain due to trauma (principal); M25.511 Pain in right shoulder
CPT/HCPCS: 73030

== ENCOUNTER → 2020-08-21 10:23 | Outpatient (CLI) | payer MEDICARE, SELFPAY ==
--- NOTE | 2020-08-21 10:27 | XR_ITS ---
PROCEDURE: XR CLAVICLE RT CLINICAL INDICATION: PAIN IN RT CLAVICLE COMPARISON: No exams were available for comparison FINDINGS: There are prominent osteoarthritic changes with bony hypertrophy at the acromioclavicular joint with mild subacromial stenosis. There are mild osteoarthritic changes of the glenohumeral joint Other findings:None. IMPRESSION: Osteoarthritis of the AC joint with bony hypertrophy and mild subacromial stenosis Dictated by: Piyush Freeman MD 08/21/2020 10:53 Piyush Freeman MD in [place] 08/21/2020 10:53
== END ==
PROVIDERS: PCP Nurse Practitioner Family; Visit Provider Nurse Practitioner Family
DX: M89.8X1 Other specified disorders of bone, shoulder (principal)
CPT/HCPCS: 73000

== ENCOUNTER → 2020-08-22 07:13 | Outpatient (CLI) | payer MEDICARE, SELFPAY ==
[2020-08-22 07:36] LABS: Basophils % 0.4 % (0.1-2.0); Eosinophils # 0.2 K/mm3 (0.0-0.4); Eosinophils % 2.6 % (0.1-12.0); Hemoglobin 15.8 g/dL (14.1-18.0); Lymphocytes # 1.9 K/mm3 (0.7-4.5); Lymphocytes % 22.4 % (10-50); Mean Corpuscular HGB Conc 33.6 g/dL (31.8-35.4); Mean Corpuscular Hemoglobin 29.8 pg (27.0-31.2); Mean Corpuscular Volume 88.7 fl (80-94); Monocytes # 0.6 K/mm3 (0.1-1.0); Monocytes % 6.4 % (1.7-9.3); Neutrophils # 5.9 K/mm3 (1.8-7.8); Neutrophils % 68.2 % (37.0-80.0); Platelet Count 163 K/mm3 (142-424); Red Cell Distribution Width 15.4 % (11.5-17.5); White Blood Count 8.7 K/mm3 (4.8-10.8)
[2020-08-22 07:50] LABS: Alanine Aminotransferase 30 U/L (12-78); Albumin Level 4.5 g/dl (3.5-5.0); Albumin/Globulin Ratio 1.6 (1.1-1.8); Alkaline Phosphatase 53 U/L (38-126); Anion Gap 10.6 mEq/L (5-15); Aspartate Amino Transferase 26 U/L (17-59); Bilirubin,Total 0.7 mg/dl (0.2-1.3); Blood Urea Nitrogen 23 mg/dl (9-20); Calcium 9.2 mg/dl (8.4-10.2); Carbon Dioxide 32 mmol/L (22.0-30.0); Chloride 101 mmol/L (98-107); Estimated Glomerular Filt Rate 83 ml/min (>60); GFR (African American) 101 ML/MIN (>60); Globulin 2.9 g/dL (1.3-3.2); Glucose 177 mg/dl (74-100); Potassium 4.6 mmoL/L (3.5-5.1); Sodium 139 mmol/L (136-145); Total Protein,Serum 7.4 g/dl (6.3-8.2)
[2020-08-22 08:56] LABS: Creatinine,Urine Random 47 mg/dL (Not Estab.)
[2020-08-22 08:57] LABS: Hemoglobin A1C 6.9 % (4.0-6.0)
[2020-08-22 09:02] LABS: Microalbumin < 6.000 mg/L (0-16.7)
[2020-08-22 09:55] LABS: Alanine Aminotransferase 28 U/L (12-78); Albumin Level 4.4 g/dl (3.5-5.0); Alkaline Phosphatase 50 U/L (38-126); Aspartate Amino Transferase 26 U/L (17-59); Bilirubin,Direct 0.4 mg/dl (0.0-0.4); Bilirubin,Indirect 0.2 mg/dL (0.0-0.9); Bilirubin,Total 0.6 mg/dl (0.2-1.3); Bilirubin,Unconjugated 0.2 mg/dL (0.0-1.1); Chol/HDL Ratio 3.8 (1-3.5); Cholesterol 218 mg/dl (140-200); HDL Cholesterol 58 mg/dl (40-60); Total Protein,Serum 7.1 g/dl (6.3-8.2); Triglycerides 237 mg/dl (30-150); VLDL Cholesterol 47 mg/dL (0-40)
[2020-08-22 10:07] LABS: Direct LDL Cholesterol 130.01 mg/dL (100-129)
[2020-08-22 10:14] LABS: Free T4 (Free Thyroxine) 0.87 ng/dl (0.78-2.19)
[2020-08-22 10:28] LABS: Thyroid Stimulating Hormone 3.95 uIU/mL (0.465-4.68)
== END ==
PROVIDERS: Internal Medicine; Visit Provider Nurse Practitioner Family
DX: R06.00 Dyspnea, unspecified; I20.9 Angina pectoris, unspecified; R53.83 Other fatigue; E11.65 Type 2 diabetes mellitus with hyperglycemia; I10 Essential (primary) hypertension; E78.2 Mixed hyperlipidemia; M70.61 Trochanteric bursitis, right hip; M70.62 Trochanteric bursitis, left hip; Z87.891 Personal history of nicotine dependence; Z79.84 Long term (current) use of oral hypoglycemic drugs; Z79.899 Other long term (current) drug therapy
CPT/HCPCS: 36415; 80053; 80061; 80076; 82043; 82570; 83036; 84439; 84443; 85025

== ENCOUNTER → 2020-09-09 06:22 | Outpatient (CLI) | payer MEDICARE, SELFPAY ==
--- NOTE | 2020-09-09 06:23 | CA_ITS ---
APPROVED REPORT EXAM: Comprehensive 2D, Doppler, and color-flow Echocardiogram [employer] Supervisor: Sandra Olmos, BALDO, RVS Ht: 5 ft 7 in Wt: 237lbs BSA: 2.17 BP: 129/74 mmHg Indications: CP, /AI, CAD hx-OHS-CABG w/ previous [place] Echo Enhancing Agent Comments: Technically difficult exam due to body habitus. 2D Dimensions IVSd 1.06 cm M: 0.6-1.2 LVEF (Visual) 76.60 % PWd 1.32 cm M: 0.6 - 1.2 LA Volume 44.90 mL LVDd 5.53 cm M: 4.2 - 5.9 LA Volume Index 20.69 mL/m2 (M/F) 16-34 LVDs 3.00 cm M: 2.5 - 4.0 LVOT 1.90 cm (M/F) 1.5-2.5 M-Mode Dimensions LA Diam 4.84 cm (1.9-4.0) Ao Diam 3.80 cm (2.0-3.7) EPSs 0.56 cm TAPSE 1.60 (<1.7) LV Diastology E Decel Time 150.00 (160-240 msec) E/A Ratio 1.12 MED E' 5.50 (< 7 cm/sec) MED A' 7.60 cm/s E'/MED E' Ratio 26.05 (>14) LAT E' 6.10 (<10 cm/sec) LAT A' 10.60 cm/s E/LAT E' Ratio 23.49 (>14) Pulm Vein s 45.00 cm/sec Pulm Vein d 29.00 cm/sec Ar-A Duration 157.00 msec Aortic Valve LVOT Max 109.00 (70-110 cm/s) LVOT VTI 29.15 cm AoV Peak [place]. 293.00 (50-130 cm/s) AI PHT 480.00 ms AO Peak GR. 34.20 mmHg AO Mean GR. 19.30 (<5 mmHg) AO VTI 76.94 (18-25 cm) LUCIANA (VTI) 1.07 (2.5-4.5 cm2) Mitral Valve MV A Velocity 128.00 (40-130 cm/s) E/A Ratio 1.12 MV Decel. Time 150.00 (160-240 ms) MV PHT 80.00 ms Pulmonary Valve PV Peak Velocity 69.00 (50-150 cm/s) Tricuspid Valve TR P. Velocity 198.00 cm/s RAP Estimate 10.00 mmHg RVSP 25.70 mmHg Left Ventricle Left atrium is mildly enlarged, left ventricle is normal size, mild concentric left ventricular hypertrophy, visually estimated ejection fraction 55% with no regional wall motion abnormality, grade 1 diastolic dysfunction seen with tissue Doppler evidence of raise left atrial pressure. Right Ventricle Right atrium and right ventricle are normal size and contractility. Aortic Valve Aortic valve is thickened and calcified, the mean gradient across valve is 19 mmHg, the valve area is calculated 1.4 cm??? represents moderate aortic stenosis, there is mild aortic insufficiency. Mitral Valve Mitral valve has dense mitral annular calcification with extended both anterior posterior mitral leaflet, there is no mitral stenosis, there is mild mitral regurgitation. Tricuspid Valve Tricuspid valve grossly normal, there is mild tricuspid regurgitation, tricuspid regurgitation jet velocity is inadequate for calculation of the right ventricular systolic pressure. Pulmonic Valve Pulmonic valve is poorly visualized. Great Vessels Aortic root is normal size. Pericardium No significant pericardial effusion noted. Conclusion 1. Mildly enlarged left atrium, normal left ventricular size, mild concentric left ventricular hypertrophy, visually estimated ejection fraction 55% with no regional wall motion abnormality, grade 1 diastolic dysfunction seen with tissue Doppler evidence of raise left atrial pressure. 2. Thickened and calcified aortic valve with moderate aortic stenosis, there is mild aortic insufficiency. 3. Mild mitral and tricuspid regurgitation. 4. No significant pericardial effusion noted. Electronically signed by : Americo Ross, 09/09/2020 17:50:08
--- NOTE | 2020-09-09 06:23 | CA_ITS ---
APPROVED REPORT Exam: Pharmacologic Technologist: Lizbeth Cruz, Ht: 5 ft 7 in Wt: 237 lbs BSA: 2.17 m2 HR: 57 bpm BP: 122/55 mmHg Rhythm: Sinus maximo, 1st degree AVB, LAD, cannot R/O old inferior ME Medical History Medical History: Diabetic ??? Noninsulin, HTN, Hyperlipidemia Medications: Isosorbide,,,,, Atenolol,,,,, Gabapentin,,,,, Flomax,,,,, Losartan,,,,, Lasix,,,,, Crestor,,,,, XaRELTO,,,,, Nitro,,,,, EMpagliflozin,,,,, AOscar,,,,, Cardiac Risk Factors: HTN, Hyperlipidemia, Diabetes (non-insulin) Stress Test Details Test: Elmer HR Resting HR: 61 bpm Max Heart Rate (APMHR): 149.120843 bpm Max HR Achieved: 84 bpm Target HR (85% APMHR): 126.025026 bpm % of APMHR: 56.38 Recovery HR: 75 bpm BP Resting BP: 122/55 mmHg Max BP: 141/57 mmHg Recovery BP: 107.0/66.0 mmHg ECG Resting ECG: Sinus maximo, 1st degree ABV, LAD, cannot R/O old inferior ME Clinical Exercise duration: 04:10 min Highest Stage Achieved: Exercise capacity: 1.0 METs Stress ECG Conclusion During lexiscan pt experinced mild nausea, headache, and malaise. No CP noted. Occasional PVCs. No significant changes to ST-T. Unremarkable lexiscan stress. Myoview images reported separately. Test Summary REST 09:27 0.0 0.0 61 . 122/ 55 . . Stage 1 01:00 10.0 0.0 73 . . . . Stage 1 02:00 10.0 0.0 79 . . . . Stage 1 03:00 10.0 0.0 75 . 141/ 57 . . Stage 2 01:00 12.0 0.0 74 . 112/ 55 . . Stage 2 01:10 12.0 0.0 75 . 112/ 55 . Stop exercise at 04:10 RECOVERY 01:00 0.0 0.0 75 . 116/ 60 . . RECOVERY 02:00 0.0 0.0 74 . 116/ 60 . . RECOVERY 03:00 0.0 0.0 74 . 107/ 66 . . RECOVERY 03:54 0.0 0.0 71 . 106/ 61 . . Electronically signed by : Americo Ross, 09/09/2020 18:19:56
--- NOTE | 2020-09-09 06:23 | NM_ITS ---
APPROVED REPORT Exam: Nuclear Stress Test Indication: angina..short of breath..fatigue Patient Location: Outpatient Stress Tech: Lizbeth Cruz NM Tech:Ria LemosANAI RT(R)(N) Ht: 5 ft 7 in Wt: 235 lbs HR: 57 bpm BP: 122/55 mmHg BSA: 2.17 m2 BMI: 36.8 History: angina..short of breath..fatigue Procedure: Patient received a 0.4 mg of intravenous Lexiscan, resting heart rate 57 bpm, resting blood pressure 122/55 mmHg, with Lexiscan maximum heart rate achived was 76 bpm which is Less than 85 % of the maximum predicted heart rate and blood pressure was 107/66 mmHg. With Lexiscan, patient denied any complaint of chest pain. paient was unable to lay on his belly Electrocardiogram Resting electrocardiogram shows sinus rhythm, with Lexiscan there is less than 1.[address] segment depression noted from the baseline EKG. The EKG portion of the Lexiscan is nondiagnostic. Cardiac Stress and Resting SPECT Images: Cardiac Stress and Resting SPECT images were obtained using technetium 99m Myoview 30.2 mCi stress and 10.36 mCi at rest. Gated SPECT for analysis of segmental wall motion and calculation of the ejection fraction also done. Cardiac stress and resting SPECT images show decreased tracer activity in the anterolateral wall in a fixed pattern with normal tres gated SPECT is likely secondary to soft tissue attenuation, no reversible ischemia seen. Computer derived ejection fraction is 52% with no regional wall motion abnormality, right ventricle is normal size and contractility. Conclusion: 1. The EKG portion of the Lexiscan is nondiagnostic. 2. No scintigraphic evidence of reversible ischemia seen, computer derived ejection fraction is 52% with no regional wall motion abnormality, right ventricle is normal size and contractility. 3. Likely normal Lexiscan Myoview study. Electronically signed by : Americo Ross, 09/09/2020 18:32:15
== END ==
PROVIDERS: PCP Nurse Practitioner Family; Visit Provider Internal Medicine Cardiovascular Disease
DX: I20.9 Angina pectoris, unspecified (principal); I35.8 Other nonrheumatic aortic valve disorders; R06.00 Dyspnea, unspecified; R40.0 Somnolence; R53.83 Other fatigue; Z87.891 Personal history of nicotine dependence; M70.61 Trochanteric bursitis, right hip; M70.62 Trochanteric bursitis, left hip
CPT/HCPCS: 78452; 93017; 93306; A9502; J2785

== ENCOUNTER → 2020-10-21 09:57 | Outpatient (CLI) | payer MEDICARE, SELFPAY ==
[2020-10-22 08:25] LABS: PSA, Free 0.11 ng/mL; Prostate Specific Ag 0.4 ng/mL (0.0-4.0)
== END ==
PROVIDERS: Visit Provider Urology
DX: N40.1 Benign prostatic hyperplasia with lower urinary tract symptoms (principal)
CPT/HCPCS: 36415; 84153; 84154

== ENCOUNTER → 2021-01-23 07:32 | Outpatient (CLI) | payer MEDICARE, SELFPAY ==
[2021-01-23 08:13] LABS: Basophils % 0.5 % (0.1-2.0); Eosinophils # 0.2 K/mm3 (0.0-0.4); Eosinophils % 2.1 % (0.1-12.0); Hematocrit 47.8 % (42.0-52.0); Hemoglobin 15.6 g/dL (14.1-18.0); Lymphocytes # 2.3 K/mm3 (0.7-4.5); Lymphocytes % 28.8 % (10-50); Mean Corpuscular HGB Conc 32.5 g/dL (31.8-35.4); Mean Corpuscular Volume 92.3 fl (80-94); Mean Platelet Volume 8.7 fl (7.4-10.4); Monocytes # 0.7 K/mm3 (0.1-1.0); Monocytes % 8.2 % (1.7-9.3); Neutrophils # 4.8 K/mm3 (1.8-7.8); Neutrophils % 60.4 % (37.0-80.0); Platelet Count 191 K/mm3 (142-424); Red Blood Count 5.18 M/mm3 (4.60-6.20); Red Cell Distribution Width 14.9 % (11.5-17.5); White Blood Count 7.9 K/mm3 (4.8-10.8)
[2021-01-23 09:23] LABS: Alanine Aminotransferase 36 U/L (12-78); Albumin Level 4.2 g/dl (3.5-5.0); Albumin/Globulin Ratio 1.6 (1.1-1.8); Alkaline Phosphatase 47 U/L (38-126); Anion Gap 9.5 mEq/L (5-15); Aspartate Amino Transferase 35 U/L (17-59); Bilirubin,Total 0.7 mg/dl (0.2-1.3); Blood Urea Nitrogen 26 mg/dl (9-20); Calcium 9.3 mg/dl (8.4-10.2); Carbon Dioxide 29 mmol/L (22.0-30.0); Chloride 101 mmol/L (98-107); Cholesterol 212 mg/dl (140-200); Estimated Glomerular Filt Rate 73 ml/min (>60); GFR (African American) 89 ML/MIN (>60); Globulin 2.7 g/dL (1.3-3.2); Glucose 164 mg/dl (74-100); HDL Cholesterol 53 mg/dl (40-60); Potassium 4.5 mmoL/L (3.5-5.1); Sodium 135 mmol/L (136-145); Total Protein,Serum 6.9 g/dl (6.3-8.2); Triglycerides 353 mg/dl (30-150); VLDL Cholesterol 71 mg/dL (0-40)
[2021-01-23 09:34] LABS: Direct LDL Cholesterol 123.56 mg/dL (100-129)
[2021-01-23 09:54] LABS: Thyroid Stimulating Hormone 3.95 uIU/mL (0.465-4.68)
[2021-01-23 10:12] LABS: Vitamin B12 473 pg/mL (239-931)
== END ==
PROVIDERS: Visit Provider Nurse Practitioner Family
DX: I10 Essential (primary) hypertension (principal); E78.2 Mixed hyperlipidemia; E11.65 Type 2 diabetes mellitus with hyperglycemia; R60.9 Edema, unspecified; R20.2 Paresthesia of skin; Z79.84 Long term (current) use of oral hypoglycemic drugs
CPT/HCPCS: 36415; 80053; 80061; 82607; 83036; 84443; 85025

== ENCOUNTER → 2021-03-31 07:08 | Outpatient (CLI) | payer MEDICARE, SELFPAY ==
[2021-03-31 07:42] LABS: Basophils % 0.5 % (0.1-2.0); Eosinophils # 0.2 K/mm3 (0.0-0.4); Eosinophils % 2.2 % (0.1-12.0); Hematocrit 45.9 % (42.0-52.0); Hemoglobin 14.7 g/dL (14.1-18.0); Lymphocytes # 2.1 K/mm3 (0.7-4.5); Lymphocytes % 27.3 % (10-50); Mean Corpuscular Hemoglobin 29.9 pg (27.0-31.2); Mean Corpuscular Volume 93.4 fl (80-94); Mean Platelet Volume 8.4 fl (7.4-10.4); Monocytes # 0.6 K/mm3 (0.1-1.0); Monocytes % 8.1 % (1.7-9.3); Neutrophils # 4.7 K/mm3 (1.8-7.8); Neutrophils % 61.9 % (37.0-80.0); Platelet Count 156 K/mm3 (142-424); Red Blood Count 4.91 M/mm3 (4.60-6.20); Red Cell Distribution Width 15.6 % (11.5-17.5); White Blood Count 7.7 K/mm3 (4.8-10.8)
[2021-03-31 08:25] LABS: Chloride 95 mmol/L (98-107); Sodium 132 mmol/L (136-145)
[2021-03-31 08:28] LABS: Blood Urea Nitrogen 32 mg/dl (9-20); Carbon Dioxide 31 mmol/L (22.0-30.0); Estimated Glomerular Filt Rate 66 ml/min (>60); GFR (African American) 80 ML/MIN (>60)
[2021-03-31 08:29] LABS: Calcium 9.6 mg/dl (8.4-10.2); Glucose 186 mg/dl (74-100)
== END ==
PROVIDERS: PCP Nurse Practitioner Family; Visit Provider Nurse Practitioner Family
DX: Z01.812 Encounter for preprocedural laboratory examination; Z11.52 Encounter for screening for COVID-19; I25.708 Atherosclerosis of coronary artery bypass graft(s), unspecified, with other forms of angina pectoris; I10 Essential (primary) hypertension; I35.0 Nonrheumatic aortic (valve) stenosis; I35.8 Other nonrheumatic aortic valve disorders; E66.9 Obesity, unspecified; Z79.84 Long term (current) use of oral hypoglycemic drugs
CPT/HCPCS: 36415; 80048; 85025; C9803; U0003; U0005

== ENCOUNTER 2021-04-02 09:42 | Day surgery (SDC) | payer MEDICARE, SELFPAY ==
[2021-04-02] VITALS (13 sets, daily range): BP systolic 129–166; BP diastolic 55–90; PULSE 53–71; RESP 18–20; O2SAT 95–99; BMI 38.0
--- NOTE | 2021-04-02 07:04 | IR_ITS ---
APPROVED REPORT Patient Location: Outpatient PROCEDURES Left heart catheterization Left ventriculogram Selective coronary angiogram Selective engagement left internal mammary artery with angiography Selective engagement saphenous vein graft to the circumflex artery with angiography Selective engagement of the saphenous vein graft to the right coronary with angiography Drug-eluting stent deployment to the distal left main artery extending into the proximal circumflex artery INDICATION Coronary artery disease, History of coronary artery bypass surgery, Progressive angina pectoris, Interval loss of vein graft Informed consent was obtained prior to the procedure. COMPLICATIONS None Estimated Blood Loss: Less than 10 mls TECHNIQUE One percent lidocaine used to anesthetize the right groin. The right femoral artery was accessed via the Seldinger technique and a 5 [place] sheath was placed in the right femoral artery. A JL 4, JR4 catheter were used to perform left heart catheterization, left ventriculogram selective coronary angiography as well as selective engagement of the 2 vein grafts and the left internal mammary artery. At the end the diagnostic procedure therapeutic heparin was administered giving a therapeutic ACT and the 5 [place] sheath was exchanged for a 6 Ukrainian sheath. A JL4 guide catheter was placed in the left main artery and a Choice PT wire was placed distally into the circumflex artery. Predilatation was made due to inability to primarily stent. A 3.5 x 18 mm resolute Greg stent was deployed at 20 and then 24 martinez in the distal left main artery extending into the proximal circumflex artery. A 4 mm x 12 mm balloon was then deployed at 24 and then 24 martinez to post dilate which still would not reduce the stenosis. A 4.5 x 12 mm noncompliant balloon was then deployed at 28 martinez which finally reduce the stenosis to 0%. MARILYN-3 flow was present before and after the procedure. After achieving excellent angiograph results the apparatus was moved the groin was reprepped gloves were changed sheath was removed and hemostasis was achieved using Perclose device patient was transferred the postop holding in stable condition ANGIOGRAPHIC RESULTS The left main artery Normal The left anterior descending artery Ostially occluded The circumflex artery Has a proximal calcified concentric 80 to 90% stenosis. Distally the vessel has long 60 to 70% stenosis. The right coronary artery Ostially occluded with a distal vessel filling via [id number] collaterals from the circumflex artery The JAVED ventriculogram reveals Dilated ventricle with ejection fraction of 45% The left ventricular end-diastolic pressure 20 mmHg Left internal mammary artery is widely patent to the LAD Saphenous vein graft to right coronary ostially occluded Saphenous vein graft to OM1 is patent. It then skips to a terminal obtuse marginal artery. The vein graft is widely patent with minimal 10 to 20% stenosis IMPRESSION Chronically occluded right coronary artery in which the saphenous vein graft to the right coronary is ostially occluded. The [place] right coronary fills via collaterals from the circumflex artery which has ostial severe stenosis Dilated ventricle with reduced ejection fraction Normal left ventricular NaSal pressure Coronary disease as described above PLAN 1. Dual antiplatelet therapy 2. Triple therapy for 1 month and then drop the aspirin 3. LDL less than 55 4. Avoidance of tobacco products 5. Risk factor modification 6. Cardiac rehabilitation Electronically signed by : Ken Dahl MD 04/02/2021 13:27:33
--- NOTE | 2021-04-02 13:06 | HMH.PHACLD ---
Jeronimo Luis has received discharge medication counseling on the following medications: PATIENT IS CURRENTLY TAKING ATENOLOL 50 MG DAILY, LOSARTAN 50 MG DAILY, AND ROSUVASTATIN 20 MG HS. STARTING BRILINTA 90 MG BID. NOT STARTING ASPIRIN AT THIS TIME PATIENT IS CURRENTLY TAKING XARELTO WELL.
[2021-04-02 19:44] LABS: CATHL Activated Clotting Time > 400 SEC (74-125)
== END 2021-04-02 15:16 | disposition home or self-care (01) ==
LOC: CATHLAB 09:46
PROVIDERS: PCP Nurse Practitioner Family; Visit Provider Internal Medicine
DX: I10 Essential (primary) hypertension; I25.708 Atherosclerosis of coronary artery bypass graft(s), unspecified, with other forms of angina pectoris; I35.0 Nonrheumatic aortic (valve) stenosis; I35.8 Other nonrheumatic aortic valve disorders; I25.118 Atherosclerotic heart disease of native coronary artery with other forms of angina pectoris; Z79.01 Long term (current) use of anticoagulants; Z79.899 Other long term (current) drug therapy; Z95.1 Presence of aortocoronary bypass graft; I25.82 Chronic total occlusion of coronary artery; E11.9 Type 2 diabetes mellitus without complications; Z79.02 Long term (current) use of antithrombotics/antiplatelets
CPT/HCPCS: 85347; 92928; 93459; 99152; 99153; C1725; C1760; C1769; C1876; C1894; C9600; J1644; Q9967

== ENCOUNTER → 2021-04-03 15:56 | Outpatient (CLI) | payer MEDICARE, SELFPAY ==
[2021-04-03 16:28] LABS: Basophils # 0.1 K/mm3 (0-0.2); Basophils % 1.3 % (0.1-2.0); Eosinophils # 0.1 K/mm3 (0.0-0.4); Eosinophils % 1.5 % (0.1-12.0); Hemoglobin 15.4 g/dL (14.1-18.0); Lymphocytes # 1.7 K/mm3 (0.7-4.5); Lymphocytes % 17.9 % (10-50); Mean Corpuscular HGB Conc 32.1 g/dL (31.8-35.4); Mean Corpuscular Hemoglobin 30.1 pg (27.0-31.2); Mean Corpuscular Volume 93.8 fl (80-94); Monocytes # 0.8 K/mm3 (0.1-1.0); Neutrophils # 6.7 K/mm3 (1.8-7.8); Neutrophils % 71.3 % (37.0-80.0); Platelet Count 149 K/mm3 (142-424); Red Blood Count 5.11 M/mm3 (4.60-6.20); Red Cell Distribution Width 15.5 % (11.5-17.5); White Blood Count 9.3 K/mm3 (4.8-10.8)
[2021-04-03 16:30] LABS: Chloride 99 mmol/L (98-107); Potassium 5.3 mmoL/L (3.5-5.1); Sodium 134 mmol/L (136-145)
[2021-04-03 16:33] LABS: Anion Gap 9.3 mEq/L (5-15); Blood Urea Nitrogen 21 mg/dl (9-20); Calcium 8.5 mg/dl (8.4-10.2); Carbon Dioxide 31 mmol/L (22.0-30.0); Estimated Glomerular Filt Rate 66 ml/min (>60); GFR (African American) 80 ML/MIN (>60); Glucose 174 mg/dl (74-100)
== END ==
PROVIDERS: PCP Nurse Practitioner Family; Visit Provider Internal Medicine
DX: E66.9 Obesity, unspecified (principal); I10 Essential (primary) hypertension; R11.0 Nausea; I20.9 Angina pectoris, unspecified; Z68.37 Body mass index [BMI] 37.0-37.9, adult
CPT/HCPCS: 80048; 85025

== ENCOUNTER 2021-04-14 09:00 | Outpatient (RCR) | payer MEDICARE, SELFPAY ==
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
--- NOTE | 2021-02-26 11:15 | HMH.RHREAS ---
Rehab Reassessment Rehab OP Re-assessment Start: 02/26/21 11:10 Freq: Status: Active Protocol: Document 02/26/21 11:10 KO (Rec: 02/26/21 11:15 PHOLATONYA [id number]) Electronically Signed By Zbigniew Dexter, PT 02/26/21 11:10 Rehab Re-assessment Subjective Subjective Pt reports less pain overall, but remains very tender to palpation around B ankles, medially and laterally. Objective Objective Notes B LE with mildly fibrotic edema noted from knees distally. 2+ pitting edema remains in L foot and ankle. 1 + pitting edema from mid-thigh distally on B LE. 2/4 tenderness to palpation on B ankles. Assessment Progress Assessment Progressing as Expected Assessment Notes Pt has shown improvement in edema with compression wear, but pain remains problematic. He continues to have increased fibrotic and pitting edema. Continues to need further manual treatment interventions . Patient goals met ST,2,3,4,5 Goals Not Met LT,2,3,4,5,6 Revised Goals none Plan Plan Continue per initial POC. Frequency of Therapy 2 x/wk Duration of therapy 8 wks Time and Billing Re-Eval Time 15 Re-Eval Billing Units 0 PHYSICIAN CERTIFICATION: I certify the specified therapy services for Jeronimo Luis are required, authorized, and reviewed every 30 days.
== END 2021-04-14 09:05 | disposition home or self-care (01) ==
LOC: PT 09:00
PROVIDERS: PCP Nurse Practitioner Family; Visit Provider Nurse Practitioner Family
DX: R60.0 Localized edema (principal)
CPT/HCPCS: 97110; 97140; 97162; 97164; 97760

== ENCOUNTER → 2021-04-16 15:09 | Outpatient (CLI) | payer MEDICARE, SELFPAY ==
[2021-04-16 17:35] LABS: Anion Gap 14.9 mEq/L (5-15); Blood Urea Nitrogen 18 mg/dl (9-20); Calcium 9.1 mg/dl (8.4-10.2); Carbon Dioxide 28 mmol/L (22.0-30.0); Chloride 98 mmol/L (98-107); Estimated Glomerular Filt Rate 83 ml/min (>60); GFR (African American) 100 ML/MIN (>60); Glucose 165 mg/dl (74-100); Potassium 4.9 mmoL/L (3.5-5.1); Sodium 136 mmol/L (136-145)
== END ==
PROVIDERS: Visit Provider Urology
DX: E66.9 Obesity, unspecified (principal); I10 Essential (primary) hypertension; I25.708 Atherosclerosis of coronary artery bypass graft(s), unspecified, with other forms of angina pectoris; I35.0 Nonrheumatic aortic (valve) stenosis; R06.00 Dyspnea, unspecified; R53.83 Other fatigue; Z68.37 Body mass index [BMI] 37.0-37.9, adult
CPT/HCPCS: 36415; 80048

== ENCOUNTER 2021-04-27 13:52 | Outpatient (RCR) | payer MEDICARE, SELFPAY | END 2021-04-27 13:55 | disposition home or self-care (01) | LOC: PT 13:52 | PROVIDERS: Visit Provider Internal Medicine | DX: I25.10 Atherosclerotic heart disease of native coronary artery without angina pectoris (principal); Z95.5 Presence of coronary angioplasty implant and graft | CPT/HCPCS: 93798 ==

== ENCOUNTER → 2021-05-04 07:52 | Outpatient (CLI) | payer MEDICARE, SELFPAY ==
--- NOTE | 2021-05-04 07:56 | FL_ITS ---
FINAL REPORT CLINICAL HISTORY: trouble swallowing x 3 years,,GLOBUS SENSATION, HIATAL HERNIA..2.12 fluoro time FINDINGS: UPPER GI EXAM HISTORY: Epigastric pain. Difficulty swallowing. PROCEDURE: The patient ingested barium. Effervescent crystals were also administered. Spot and overhead films were obtained. FINDINGS: No esophageal stricture is identified. A 13 mm barium tablet passes through the esophagus and into the stomach without delay. There is a small hiatal hernia. No gastroesophageal reflux was demonstrated during the exam. There was esophageal dysmotility during the exam. There are prominent rugal folds within the fundus of the stomach which are nonspecific but may be related to gastritis. The stomach empties appropriately and the duodenum has an unremarkable appearance. FLUOROSCOPY TIME: 2 minutes and 12 seconds of fluoroscopy time was utilized. 19 radiographs were obtained. IMPRESSION: Small sliding-type hiatal hernia. Esophageal dysmotility. Nonspecific promminent rugal folds which may be related to gastritis. Films reviewed , interpreted and dictated by Dr. Pinon. Transcribed by Joni Guzman PA-C. Reviewed, Interpreted and Dictated by Jose Pinon III, MD Transcribed by JOVANNA Montgomery Authenticated by Jose Pinon III, MD on 05/04/2021 11:12:11 AM [facility]
== END ==
PROVIDERS: PCP Nurse Practitioner Family; Visit Provider Nurse Practitioner Family
DX: R19.8 Other specified symptoms and signs involving the digestive system and abdomen (principal); K44.9 Diaphragmatic hernia without obstruction or gangrene
CPT/HCPCS: 74246

== ENCOUNTER → 2021-05-12 09:16 | Outpatient (CLI) | payer MEDICARE, SELFPAY ==
--- NOTE | 2021-05-12 09:24 | CA_ITS ---
APPROVED REPORT EXAM: Comprehensive 2D, Doppler, and color-flow Echocardiogram Music Department Chair: Joanna Lentz CRT Ht: 5 ft 7 in Wt: 238lbs BSA: 2.18 BP: 13/71 mmHg Indications: Murmur, Shortness of Breath, Obesity, Peripheral Edema, Hypertension/HDD, , CAD, CABG 2D Dimensions LVOT 1.92 cm (M/F) 1.5-2.5 LA Volume 42.70 mL LA Volume Index 19.60 mL/m2 (M/F) 16-34 M-Mode Dimensions RVDd 4.29 cm (0.9-2.6) LA Diam 4.23 cm (1.9-4.0) LVDd 3.73 cm (3.5-5.7) Ao Diam 4.84 cm (2.0-3.7) LVDs 3.01 cm (3.5-5.7) IVSd 2.29 cm (0.6-1.1) PWd 1.24 cm (0.6-1.1) EF (Teich) 40.50% FS 19.30% EDV (Teich) 59.30 mL TAPSE 1.41 (<1.7) ESV (Teich) 35.30 mL LV Diastology E Decel Time 240.00 (160-240 msec) E/A Ratio 0.82 MED E' 3.60 (< 7 cm/sec) MED A' 8.90 cm/s E'/MED E' Ratio 28.31 (>14) LAT E' 5.30 (<10 cm/sec) LAT A' 12.60 cm/s E/LAT E' Ratio 19.23 (>14) Aortic Valve LVOT Max 162.00 (70-110 cm/s) LVOT VTI 38.34 cm AoV Peak [place]. 265.00 (50-130 cm/s) AI PHT 424.00 ms AO Peak GR. 28.20 mmHg AO Mean GR. 15.20 (<5 mmHg) AO VTI 58.44 (18-25 cm) LUCIANA (VTI) 1.90 (2.5-4.5 cm2) Mitral Valve MV E Max [place]. 102.00 (40-130 cm/s) MV A Velocity 124.00 (40-130 cm/s) E/A Ratio 0.82 MV Decel. Time 240.00 (160-240 ms) MV PHT 70.00 ms Pulmonary Valve PV Peak Velocity 112.00 (50-150 cm/s) Tricuspid Valve TR P. Velocity 180.00 cm/s RAP Estimate 10.00 mmHg RVSP 23.00 mmHg Left Ventricle Technically difficult study because of the patient factors and poor acoustic windows, the repeat study with Definity contrast is recommended for analysis of segmental wall motion. Left atrium is mildly enlarged, left ventricle is normal size, mild concentric left ventricular hypertrophy, endocardial surface of very poorly visualized, visually estimated ejection fraction probably 50%, there appears to be mild hypokinesis involving the distal septum and inferior basal wall, grade 1 diastolic dysfunction seen with tissue Doppler evidence of raise left atrial pressure. Right Ventricle Right atrium and right ventricle are normal size and contractility. Aortic Valve Aortic valve is thickened and calcified, mean gradient across aortic valve is 17 mmHg, valve area is calculated 1.5 cm) mild aortic stenosis. There is mild aortic insufficiency. Mitral Valve Mitral valve leaflets are minimally thickened, there is mild mitral regurgitation. Tricuspid Valve Tricuspid valve grossly normal, there is mild tricuspid regurgitation, tricuspid regurgitation jet velocity is inadequate for calculation of the right ventricular systolic pressure. Pulmonic Valve Pulmonic valve is poorly visualized. Great Vessels Aortic root is normal size. Inferior vena cava is not visualized. Pericardium No significant pericardial effusion noted. Conclusion 1. Technically difficult study as described above, normal left ventricular size, visually estimated ejection fraction 50% with likely segmental wall motion abnormalities described above, a repeat study with Definity contrast is recommended. Grade 1 diastolic dysfunction with tissue Doppler evidence of raise left atrial pressure. 2. Thickened and calcified aortic aortic valve, with Doppler evidence of mild aortic stenosis, valve area is 1.5 cm???, there is mild aortic insufficiency. 3. Mild mitral and tricuspid regurgitation. 4. No significant pericardial effusion 5. Inferior vena cava is poorly visualized. Electroni
== END ==
PROVIDERS: PCP Nurse Practitioner Family; Visit Provider Physician Assistant
DX: I35.0 Nonrheumatic aortic (valve) stenosis (principal); I35.8 Other nonrheumatic aortic valve disorders; R06.09 Other forms of dyspnea
CPT/HCPCS: 93306

== ENCOUNTER → 2021-05-21 10:13 | Outpatient (CLI) | payer MEDICARE, SELFPAY ==
--- NOTE | 2021-05-21 10:15 | CA_ITS ---
APPROVED REPORT EXAM: Limited 2D Echocardiogram Research Assistant: Jelena Oneal RVT Ht: 5 ft 7 in Wt: 238lbs BSA: 2.18 BP: 134/74 mmHg Indications: REPEAT WITH DEFINTIY,CAD,,CABG,SOA,OBESITY,EDEMA Echo Enhancing Agent Indication: Endocardial border delineation Agent(s) / Amount(s) Used: Definity 2 cc Conclusion 1. Limited echocardiogram was performed with Definity contrast study. 2. Normal left ventricular size, estimated ejection fraction approximately 40%, there is moderate hypokinesis involving mid to distal septum and anterior apical wall. No left ventricular thrombus seen. 3. No significant pericardial effusion noted. Electronically signed by : Americo Ross MD 05/22/2021 15:02:40
== END ==
PROVIDERS: PCP Nurse Practitioner Family; Visit Provider Internal Medicine
DX: R06.02 Shortness of breath (principal); I35.0 Nonrheumatic aortic (valve) stenosis; I35.8 Other nonrheumatic aortic valve disorders
CPT/HCPCS: 93308; Q9957

== ENCOUNTER → 2021-08-17 10:57 | Outpatient (CLI) | payer MEDICARE, SELFPAY ==
[2021-08-17 11:35] LABS: Basophils % 0.5 % (0.1-2.0); Eosinophils # 0.2 K/mm3 (0.0-0.4); Eosinophils % 2.2 % (0.1-12.0); Hematocrit 47.9 % (42.0-52.0); Hemoglobin 15.4 g/dL (14.1-18.0); Lymphocytes # 1.8 K/mm3 (0.7-4.5); Mean Corpuscular HGB Conc 32.2 g/dL (31.8-35.4); Mean Corpuscular Hemoglobin 30.6 pg (27.0-31.2); Monocytes # 0.6 K/mm3 (0.1-1.0); Monocytes % 7.7 % (1.7-9.3); Neutrophils # 5.4 K/mm3 (1.8-7.8); Neutrophils % 67.5 % (37.0-80.0); Platelet Count 166 K/mm3 (142-424); Red Blood Count 5.04 M/mm3 (4.60-6.20); White Blood Count 7.9 K/mm3 (4.8-10.8)
[2021-08-17 11:47] LABS: Chloride 97 mmol/L (98-107); Potassium 4.7 mmoL/L (3.5-5.1); Sodium 134 mmol/L (136-145)
[2021-08-17 11:49] LABS: Blood Urea Nitrogen 21 mg/dl (9-20); Estimated Glomerular Filt Rate 66 ml/min (>60); GFR (African American) 80 ML/MIN (>60)
[2021-08-17 11:50] LABS: Alanine Aminotransferase 31 U/L (12-78); Albumin Level 4.3 g/dl (3.5-5.0); Alkaline Phosphatase 50 U/L (38-126); Anion Gap 10.7 mEq/L (5-15); Aspartate Amino Transferase 28 U/L (17-59); Bilirubin,Direct 0.1 mg/dl (0.0-0.4); Bilirubin,Indirect 0.5 mg/dL (0.0-0.9); Bilirubin,Total 0.6 mg/dl (0.2-1.3); Bilirubin,Unconjugated 0.5 mg/dL (0.0-1.1); Calcium 9.9 mg/dl (8.4-10.2); Carbon Dioxide 31 mmol/L (22.0-30.0); Chol/HDL Ratio 3.8 (1-3.5); Cholesterol 208 mg/dl (140-200); Glucose 184 mg/dl (74-100); HDL Cholesterol 55 mg/dl (40-60); Total Protein,Serum 6.9 g/dl (6.3-8.2)
[2021-08-17 11:52] LABS: Triglycerides 460 mg/dl (30-150)
[2021-08-17 12:02] LABS: Direct LDL Cholesterol 96.03 mg/dL (100-129)
== END ==
PROVIDERS: Nurse Practitioner Family; PCP Nurse Practitioner Family; Visit Provider Internal Medicine
DX: E11.9 Type 2 diabetes mellitus without complications (principal); E66.9 Obesity, unspecified; I25.10 Atherosclerotic heart disease of native coronary artery without angina pectoris; I35.0 Nonrheumatic aortic (valve) stenosis; I11.9 Hypertensive heart disease without heart failure; I63.9 Cerebral infarction, unspecified; Z68.37 Body mass index [BMI] 37.0-37.9, adult
CPT/HCPCS: 36415; 80048; 80061; 80076; 85025

== ENCOUNTER 2021-10-08 09:00 | Outpatient (RCR) | payer MEDICARE, SELFPAY ==
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
--- NOTE | 2021-09-08 09:57 | HMH.RHREAS ---
Rehab Reassessment Rehab OP Re-assessment Start: 09/08/21 09:51 Freq: Status: Active Protocol: Document 09/08/21 09:53 KELSEYLATONYA (Rec: 09/08/21 09:56 KO [id number]) Electronically Signed By Zbigniew Dexter, PT 09/08/21 09:53 Rehab Re-assessment Subjective Subjective Pt reports, I can sleep a whole lot better at night now because my legs don't hurt as much. Pain: 6/10 at worst. Objective Objective Notes R lateral LE wound: L= 0.5 cm, W= 0.5 cm. B LE 2+ pitting edema noted. TTP: 1/4 tenderness to B lower legs. Assessment Progress Assessment Progressing as Expected Assessment Notes Pt has shown significant improvement in wound size to B LE with L lower leg wound now completely healed. He also ahs show decrease in edema to B LE overall, although 2+ pitting remains. Less fibrotic edema noted. Patient goals met ST,2,3,4,5 Goals Not Met LT,2,3,4,5,6,7 Revised Goals none Plan Plan Continue per initial POC Frequency of Therapy 2 x/wk Duration of therapy 4 wks Time and Billing Re-Eval Time 14 Re-Eval Billing Units 1 PHYSICIAN CERTIFICATION: I certify the specified therapy services for Jeronimo Luis are required, authorized, and reviewed every 30 days.
== END 2021-10-08 09:05 | disposition home or self-care (01) ==
LOC: PT 09:00
PROVIDERS: PCP Nurse Practitioner Family; Visit Provider Nurse Practitioner
DX: I89.0 Lymphedema, not elsewhere classified (principal)
CPT/HCPCS: 97140; 97162; 97164; 97760

== ENCOUNTER → 2021-10-26 09:13 | Outpatient (CLI) | payer MEDICARE, SELFPAY | PROVIDERS: PCP Nurse Practitioner Family; Visit Provider Internal Medicine | DX: Z01.812 Encounter for preprocedural laboratory examination (principal); Z20.822 Contact with and (suspected) exposure to COVID-19; Z13.810 Encounter for screening for upper gastrointestinal disorder | CPT/HCPCS: C9803; U0003; U0005 ==

== ENCOUNTER 2021-10-28 12:05 | Day surgery (SDC) | payer MEDICARE, SELFPAY ==
[2021-10-23 12:02] VITALS: BMI 35.2
[2021-10-28 12:42] VITALS: BP 145/75; PULSE 59; RESP 16; TEMP 36.4; O2SAT 96
--- NOTE | 2021-10-28 14:07 | P.PN_ITS ---
[facility] Medical History Angina pectoris Aortic heart murmur Blood clot in vein CAD (coronary artery disease) Daytime somnolence Dyspnea Ex-smoker Fatigue History of chest pain HTN (hypertension) Hyperlipidemia Myocardial infarction, inferior wall Neuropathy Obesity Surgical History (Updated 10/28/21 @ 12:40 by Adilene Warner, RN) History of colonoscopy History of esophagogastroduodenoscopy (EGD) History of left knee surgery Hx of CABG Previous back surgery Family History Other Family history of cancer Family history of myocardial infarction Social History Smoking Status: Never smoker alcohol intake: current substance use type: denies use current occupational status: retired Travel in the last 8 weeks: None household members: spouse housing: house caffeine: Yes [facility] Anesthesia Checklist Patient Identification Patient Identification: Arm Band Structural Data Admitted From: Home Planned Operative Procedure/s: egd Consent for Planned Operative Procedure(s) Verified: Yes Verified Documents: Surgical Consent and History and Physical NPO Status Verified Time NPO: 00:00 Additional verifications Anesthesia Reactions: No Airway Assessment C-Spine Mobility Assessed: Yes TMJ Mobility Assessed: Yes Dentition: Good Dentition Neurological Assessment Level of Consciousness: Awake and Alert Anesthesia Plan Anesthesia Risk discussed: Yes Anesthesia Plan: Verified ASA Class: III Anesthesia Type: MAC
[2021-10-28 14:11] VITALS: O2SAT 97
--- NOTE | 2021-10-28 14:21 | HMH.SCOPE ---
Procedure: Date: 10/28/21 Patient Date of :: 1950 Procedure Performed:: EGD Indications:: Dysphagia, GERD Performing Provider:: Jose Mason MD Referring Provider:: Frantz Naidu MD Sedation:: See RN records Procedure:: The gastroscope was gently passed through the incisoral orifice into the oral cavity and under direct visualization the esophagus was intubated. The endoscope was passed down the esophagus, through the stomach, and into the duodenum. Color, texture, mucosa, and anatomy of the esophagus, stomach, and duodenum were carefully examined with the scope. Findings:: Oropharynx: normal Esophagus: normal. Biopsies obtained distal and mid esophagus. Empiric dilatation performed sequentially with 18-20 mm tts balloon. EG Junction: intact at 40 cm Cardia: normal Fundus: normal Body: Mild gastritis. Biopsies obtained Antrum: Erosive gastritis. Small linear ulcerations. Biopsies obtained Duodenal bulb: normal Duodenum (second and third portion): normal Recommendations:: Await pathology results Avoid NSAIDs Increse esomeprazole to 40 mg two times per day x 4 weeks, then take once daily If dysphagia symptom does not improve then recommend barium esophagram with tablet Complications:: none Estimated blood obtained (mL): 0
[2021-10-28 14:22] VITALS: BP 131/65; PULSE 68; RESP 16; TEMP 36.3; O2SAT 93
[2021-10-28 14:32] VITALS: BP 114/57; PULSE 62; RESP 16; O2SAT 97
[2021-10-28 14:42] VITALS: BP 145/71; PULSE 68; RESP 16; O2SAT 98
[2021-10-28 14:52] VITALS: BP 120/67; PULSE 53; RESP 16; TEMP 36.3; O2SAT 98
[2021-10-30 03:30] LABS: POC Glucose,Bedside 143 (70-110)
== END 2021-10-28 14:52 | disposition home or self-care (01) ==
PROVIDERS: PCP Nurse Practitioner Family; Visit Provider Internal Medicine
PROC: 0DJ08ZZ Inspection of Upper Intestinal Tract, Via Natural or Artificial Opening Endoscopic (ICD-10-PCS; CPT 43235; principal; 2021-10-28 13:00)
DX: K21.9 Gastro-esophageal reflux disease without esophagitis (principal); R13.10 Dysphagia, unspecified; Z79.899 Other long term (current) drug therapy; K31.9 Disease of stomach and duodenum, unspecified
CPT/HCPCS: 43239; 43249; 82962; 88305; C1726

== ENCOUNTER → 2021-11-04 07:56 | Outpatient (CLI) | payer MEDICARE, SELFPAY ==
[2021-11-04 09:29] LABS: Prostate Specific Ag Screen 2.2 ng/ml (0.0-4.0)
== END ==
PROVIDERS: PCP Nurse Practitioner Family; Visit Provider Urology
DX: R97.20 Elevated prostate specific antigen [PSA] (principal); Z12.5 Encounter for screening for malignant neoplasm of prostate
CPT/HCPCS: 36415; G0103

== ENCOUNTER → 2021-11-24 09:10 | Outpatient (CLI) | payer MEDICARE, SELFPAY ==
[2021-11-24 10:35] LABS: Basophils % 0.5 % (0.1-2.0); Eosinophils # 0.2 K/mm3 (0.0-0.4); Eosinophils % 2.3 % (0.1-12.0); Hematocrit 47.2 % (42.0-52.0); Lymphocytes # 1.8 K/mm3 (0.7-4.5); Lymphocytes % 24.6 % (10-50); Mean Corpuscular HGB Conc 31.7 g/dL (31.8-35.4); Mean Corpuscular Hemoglobin 30.5 pg (27.0-31.2); Mean Corpuscular Volume 96.1 fl (80-94); Mean Platelet Volume 8.5 fl (7.4-10.4); Monocytes # 0.6 K/mm3 (0.1-1.0); Monocytes % 7.9 % (1.7-9.3); Neutrophils # 4.8 K/mm3 (1.8-7.8); Neutrophils % 64.6 % (37.0-80.0); Platelet Count 181 K/mm3 (142-424); Red Blood Count 4.91 M/mm3 (4.60-6.20); Red Cell Distribution Width 15.1 % (11.5-17.5); White Blood Count 7.5 K/mm3 (4.8-10.8)
[2021-11-24 11:33] LABS: Chloride 96 mmol/L (98-107)
[2021-11-24 11:34] LABS: Potassium 4.7 mmoL/L (3.5-5.1); Sodium 139 mmol/L (136-145)
[2021-11-24 11:36] LABS: Alanine Aminotransferase 27 U/L (12-78); Alkaline Phosphatase 53 U/L (38-126); Anion Gap 16.7 mEq/L (5-15); Aspartate Amino Transferase 30 U/L (17-59); Bilirubin,Direct 0.1 mg/dl (0.0-0.4); Bilirubin,Indirect 0.4 mg/dL (0.0-0.9); Bilirubin,Total 0.5 mg/dl (0.2-1.3); Bilirubin,Unconjugated 0.4 mg/dL (0.0-1.1); Blood Urea Nitrogen 16 mg/dl (9-20); Carbon Dioxide 31 mmol/L (22.0-30.0); Estimated Glomerular Filt Rate 83 ml/min (>60); GFR (African American) 100 ML/MIN (>60)
[2021-11-24 11:37] LABS: Albumin Level 4.3 g/dl (3.5-5.0); Cholesterol 190 mg/dl (140-200); Glucose 170 mg/dl (74-100); HDL Cholesterol 48 mg/dl (40-60); Magnesium 2.1 mg/dl (1.6-2.3); Triglycerides 325 mg/dl (30-150); VLDL Cholesterol 65 mg/dL (0-40)
[2021-11-24 11:54] LABS: Free T4 (Free Thyroxine) 0.77 ng/dl (0.78-2.19)
[2021-11-24 12:08] LABS: Thyroid Stimulating Hormone 3.93 uIU/mL (0.465-4.68)
== END ==
PROVIDERS: PCP Nurse Practitioner Family; Visit Provider Nurse Practitioner Family
DX: Z01.812 Encounter for preprocedural laboratory examination; Z20.822 Contact with and (suspected) exposure to COVID-19; I20.8 Other forms of angina pectoris; I10 Essential (primary) hypertension; E78.5 Hyperlipidemia, unspecified; Z95.1 Presence of aortocoronary bypass graft; Z95.5 Presence of coronary angioplasty implant and graft
CPT/HCPCS: 36415; 80048; 80061; 80076; 83735; 84439; 84443; 85025; C9803; U0003; U0005

== ENCOUNTER 2021-11-26 08:04 | Day surgery (SDC) | payer MEDICARE, SELFPAY ==
[2021-11-26] VITALS (13 sets, daily range): BP systolic 106–188; BP diastolic 63–92; PULSE 55–69; RESP 17–18; O2SAT 95–100; BMI 39.6
--- NOTE | 2021-11-26 07:35 | IR_ITS ---
APPROVED REPORT Patient Location: Outpatient Manager Medicaid: ANAI Gomez RT (R) PROCEDURES Left heart catheterization Left ventriculogram Selective coronary angiogram Selective engagement left internal mammary artery to the LAD Selective engagement of the saphenous vein graft to the right coronary artery Selective engagement of the saphenous vein graft supplying the first diagonal artery which then skips over to a large terminal obtuse marginal artery Drug-eluting stent deployment to the saphenous vein graft supplying the obtuse marginal artery Drug-eluting stent deployment to the posterior descending artery via the saphenous vein graft supplying the obtuse marginal artery INDICATION Coronary artery disease, History of coronary bypass surgery, Typical and accelerated recalcitrant angina pectoris Informed consent was obtained prior to the procedure. COMPLICATIONS None Estimated Blood Loss: Less than 10 mls TECHNIQUE One percent lidocaine used to anesthetize the right groin. The right femoral artery was accessed via the Seldinger technique and a 5 [place] sheath was placed in the right femoral artery. A JL 4, JR4 catheter were used to perform left heart catheterization, left ventriculogram selective coronary angiography as well as selective engagement of the 2 vein grafts and the left internal mammary artery. At the end of the diagnostic angiogram therapeutic heparin was administered giving a therapeutic ACT and a JR 4 guide catheter was placed in the saphenous vein graft to the diagonal artery. A Choice PT extra-support wire was placed distally into the skip graft. Primary stenting could not be performed therefore a guide liner was advanced which gave better support and better visualization angiographically. This allowed a 3 mm x 12 mm resolute Greg stent to be deployed at 20 martinez reducing the stenosis to 0%. No reflow occurred. Following this 2 aliquots of 800 mcg of nitroglycerin was administered via the saphenous vein graft. A Choice PT extra-support wire was then advanced and then placed into the obtuse marginal artery. The turn into the major portion of the vessel could not be made with a extra-support wire therefore the choice floppy wire was then advanced and then the was able to make the turn into the large posterior descending artery. An additional 3 mm x 12 mm resolute [place] stent was then deployed in the midportion of the skip graft supplying the obtuse marginal artery. A 2 mm balloon was then placed into the anastomosis and extending into the posterior descending artery and deployed at 15 martinez. This allowed placement of a 2.25 x 15 mm resolute Greg stent to be deployed in the distal aspect of the skip graft at the anastomosis of the posterior descending artery and into the proximal portion of the posterior descending artery. This was deployed at 20 martinez. Following this a 2.75 x 12 mm balloon was then advanced and deployed at 20 martinez to post dilate the anastomosis. Excellent angiograph results were obtained before and after the procedure with wide patency of the saphenous vein graft and the posterior descending artery. At the end of the right procedure the apparatus was removed the groin is reprepped closure change sheath was removed hemostasis was not achieved with Perclose device therefore was switched Angio-Seal which then produced excellent hemostasis. The patient was transferred the postop putting in stable condition ANGIOGRAPHIC RESULTS The left main artery Has a stent in the ostial segment which extends in the circumflex artery. The ostial portion is widely patent. Into the circumflex artery there is a concentric 40 to 50% stenosis. The distal circumflex artery then has
[2021-11-26 09:32] LABS: Bilirubin,Unconjugated 0.5 mg/dL (0.0-1.1)
[2021-11-26 09:33] LABS: Alanine Aminotransferase 28 U/L (12-78); Albumin Level 4.4 g/dl (3.5-5.0); Alkaline Phosphatase 51 U/L (38-126); Aspartate Amino Transferase 29 U/L (17-59); Bilirubin,Direct 0.1 mg/dl (0.0-0.4); Bilirubin,Indirect 0.4 mg/dL (0.0-0.9); Bilirubin,Total 0.5 mg/dl (0.2-1.3); Chol/HDL Ratio 3.9 (1-3.5); Cholesterol 192 mg/dl (140-200); HDL Cholesterol 49 mg/dl (40-60); Triglycerides 256 mg/dl (30-150); VLDL Cholesterol 51 mg/dL (0-40)
--- NOTE | 2021-11-26 11:50 | SUR.OPER ---
Family updated with pt POC and still in procedure.
[2021-11-26 12:34] LABS: CATHL Activated Clotting Time > 400 SEC (74-125)
--- NOTE | 2021-11-26 13:36 | P.CONPHA_ITS ---
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 MD ADDING ASPIRIN 81 MG DAILY.
== END 2021-11-26 16:04 | disposition home or self-care (01) ==
PROVIDERS: Nurse Practitioner Family; PCP Nurse Practitioner Family; Visit Provider Internal Medicine
DX: E78.5 Hyperlipidemia, unspecified (principal); I10 Essential (primary) hypertension; I25.708 Atherosclerosis of coronary artery bypass graft(s), unspecified, with other forms of angina pectoris; Z95.1 Presence of aortocoronary bypass graft; Z95.5 Presence of coronary angioplasty implant and graft; I25.118 Atherosclerotic heart disease of native coronary artery with other forms of angina pectoris; E11.9 Type 2 diabetes mellitus without complications; Z79.84 Long term (current) use of oral hypoglycemic drugs; Z79.899 Other long term (current) drug therapy; I25.82 Chronic total occlusion of coronary artery
CPT/HCPCS: 80061; 80076; 85347; 92928; 92937; 93459; 99152; 99153; C1725; C1760; C1769; C1876; C1894; C9600; C9604; J1644; Q9967

== ENCOUNTER → 2021-12-14 08:14 | Outpatient (CLI) | payer MEDICARE, SELFPAY ==
--- NOTE | 2021-12-14 08:14 | FL_ITS ---
FINAL REPORT CLINICAL HISTORY: difficulty swallowing, especially pills FINDINGS: ESOPHAGRAM HISTORY: Dysphagia. History of esophageal dilatation. PROCEDURE: The patient ingested barium. Effervescent crystals were also administered. Spot and overhead films were obtained. Fluoroscopy time: 1 minute 48 seconds. 12 radiographs were obtained. FINDINGS: There is a short segment of narrowing of the distal esophagus just above the gastroesophageal junction. However, a 13 mm barium tablet passes through this region without delay. There is a small sliding-type hiatal hernia. No gastroesophageal reflux was demonstrated during the exam. Esophageal dysmotility was demonstrated during the exam. IMPRESSION: Short segment smooth narrowing of the distal esophagus. However, a 13 mm barium tablet passes through this region without significant delay. Small sliding-type hiatal hernia. Esophageal dysmotility. Films reviewed , interpreted and dictated by Dr. Pinon. Transcribed by Joni Guzman PA-C. Reviewed, Interpreted and Dictated by Jose Pinon III, MD Transcribed by JOVANNA Montgomery Authenticated and . [facility]
== END ==
PROVIDERS: PCP Nurse Practitioner Family; Visit Provider Nurse Practitioner Family
DX: R13.10 Dysphagia, unspecified (principal)
CPT/HCPCS: 74220

== ENCOUNTER → 2022-03-15 07:06 | Outpatient (CLI) | payer MEDICARE, SELFPAY ==
[2022-03-15 08:14] LABS: Basophils % 0.4 % (0.1-2.0); Eosinophils # 0.1 K/mm3 (0.0-0.4); Eosinophils % 1.7 % (0.1-12.0); Hemoglobin 14.9 g/dL (14.1-18.0); Lymphocytes % 25.4 % (10-50); Mean Corpuscular HGB Conc 33.2 g/dL (31.8-35.4); Mean Corpuscular Hemoglobin 30.8 pg (27.0-31.2); Mean Corpuscular Volume 92.7 fl (80-94); Mean Platelet Volume 8.4 fl (7.4-10.4); Monocytes # 0.6 K/mm3 (0.1-1.0); Monocytes % 7.9 % (1.7-9.3); Neutrophils % 64.6 % (37.0-80.0); Platelet Count 169 K/mm3 (142-424); Red Blood Count 4.86 M/mm3 (4.60-6.20); Red Cell Distribution Width 14.9 % (11.5-17.5); White Blood Count 7.7 K/mm3 (4.8-10.8)
[2022-03-15 08:18] LABS: Chloride 102 mmol/L (98-107); Potassium 4.8 mmoL/L (3.5-5.1); Sodium 141 mmol/L (136-145)
[2022-03-15 08:20] LABS: Blood Urea Nitrogen 20 mg/dl (9-20); Estimated Glomerular Filt Rate 73 ml/min (>60); GFR (African American) 89 ML/MIN (>60)
[2022-03-15 08:21] LABS: Alanine Aminotransferase 24 U/L (12-78); Albumin Level 4.3 g/dl (3.5-5.0); Albumin/Globulin Ratio 1.6 (1.1-1.8); Alkaline Phosphatase 50 U/L (38-126); Anion Gap 13.8 mEq/L (5-15); Aspartate Amino Transferase 22 U/L (17-59); Bilirubin,Total 0.5 mg/dl (0.2-1.3); Calcium 8.8 mg/dl (8.4-10.2); Carbon Dioxide 30 mmol/L (22.0-30.0); Globulin 2.7 g/dL (1.3-3.2); Glucose 192 mg/dl (74-100)
[2022-03-15 08:35] LABS: Bilirubin,Direct 0.4 mg/dl (0.0-0.4); Chol/HDL Ratio 3.4 (1-3.5); Cholesterol 225 mg/dl (140-200); HDL Cholesterol 66 mg/dl (40-60); Triglycerides 239 mg/dl (30-150); VLDL Cholesterol 48 mg/dL (0-40)
[2022-03-15 08:39] LABS: Hemoglobin A1C 7.7 % (4.0-6.0)
[2022-03-15 08:46] LABS: Direct LDL Cholesterol 106.38 mg/dL (100-129)
[2022-03-15 08:51] LABS: Free T4 (Free Thyroxine) 0.78 ng/dl (0.78-2.19)
[2022-03-15 08:52] LABS: Thyroid Stimulating Hormone 2.53 uIU/mL (0.465-4.68)
[2022-03-15 14:51] LABS: Bilirubin,Indirect 0.1 mg/dL (0.0-0.9)
[2022-03-16 09:13] LABS: Prolactin 19.7 ng/mL (4.0-15.2)
== END ==
PROVIDERS: PCP Nurse Practitioner Family; Visit Provider Nurse Practitioner Family
DX: E66.9 Obesity, unspecified (principal); E78.5 Hyperlipidemia, unspecified; K22.4 Dyskinesia of esophagus; R13.10 Dysphagia, unspecified; Z68.37 Body mass index [BMI] 37.0-37.9, adult; Z95.1 Presence of aortocoronary bypass graft; Z95.5 Presence of coronary angioplasty implant and graft
CPT/HCPCS: 36415; 80053; 80061; 82248; 83036; 84146; 84439; 84443; 85025

== ENCOUNTER → 2022-06-15 13:39 | Outpatient (CLI) | payer MEDICARE, SELFPAY | PROVIDERS: PCP Nurse Practitioner Family; Visit Provider Nurse Practitioner | DX: E66.9 Obesity, unspecified (principal); E78.5 Hyperlipidemia, unspecified; I25.708 Atherosclerosis of coronary artery bypass graft(s), unspecified, with other forms of angina pectoris; I35.0 Nonrheumatic aortic (valve) stenosis; I35.8 Other nonrheumatic aortic valve disorders; R06.00 Dyspnea, unspecified; Z68.37 Body mass index [BMI] 37.0-37.9, adult; Z87.891 Personal history of nicotine dependence; Z95.1 Presence of aortocoronary bypass graft; Z95.5 Presence of coronary angioplasty implant and graft | CPT/HCPCS: 93306 ==

== ENCOUNTER → 2022-06-22 13:13 | Outpatient (CLI) | payer MEDICARE, SELFPAY ==
--- NOTE | 2022-06-22 13:18 | XR_ITS ---
FINAL REPORT CLINICAL HISTORY: right shoulder pain FINDINGS: 3 views of the right shoulder were obtained. There is no acute fracture or dislocation. There are moderate hypertrophic changes at the AC joint. There are no soft tissue abnormalities. IMPRESSION: No acute process. Reviewed, Interpreted and Dictated by Da Zazueta MD Transcribed by Krishna Epps Authenticated and [facility]
== END ==
PROVIDERS: PCP Nurse Practitioner Family; Visit Provider Orthopaedic Surgery
DX: M25.511 Pain in right shoulder (principal)
CPT/HCPCS: 73030

== ENCOUNTER 2022-09-09 10:00 | Outpatient (RCR) | payer MEDICARE, SELFPAY ==
--- NOTE | 2022-06-16 12:28 | HMH.PTOPWND ---
Rehab Outpt Wound Evaluation Rehab OP Wound Evaluation Start: 06/16/22 12:17 Freq: Status: Active Protocol: Document 06/16/22 12:18 KO (Rec: 06/16/22 12:27 PHORROBER [id number]) E-signed By Zbigniew Dexter, PT Subjective/History History History This is the initial PT eval for Jeronimo Luis 71 yowm who presents with B LE edema for several years, but worse x 1-2 mos this episode. He is well known to this clinic and had previous success with edema reduction. He has significant hx of cardiac issues with CAD, CABG x 4 v, stents x 5 and reduced EF. He reports minimal draining from the L lower leg this episode, but edema has remained increased. Subjective Subjective He presents with 1/10 pain this am, 8/10 pain at worst. 2 + pitting edema to B lower legs nd feet noted. 2/4 TTP noted in B lower legs in gaiter area. Lymphedema Eval Classification of Lymphedema Secondary Lymphedema Yes: cardiac and CVI Stemmer's sign Stemmer's Sign yes Stage of Lymphedema Lymphedema stages Stage II (Pitting edema, increased fibrosis w/ decreased pitting) Skin Changes Dry Skin Yes Taut, Shiny Skin Yes Redness Yes Wounds Yes Discoloration of Skin Yes Other Changes Yes Pain Scale Pain Scale (0-10) 8 Affected Extremities Areas Affected by Lymphedema/Edema Right Lower Extremity,Left Lower Extremity Manual Lymphatic Drainage Treatment Area MLD Treatment Area Right Lower Extremity,Left Lower Extremity Wound Problems/Impairments Impairments Problems/Impairmments Palpation Tenderness,Impaired Endurance,Impaired Gait Pattern,Impaired Walking, Impaired Standing,Impaired Sitting,Impaired Household Care,Impaired Recreational Activities,Increased Edema, Lymphedema Present,Wound Care Needs,Subjective C/O Pain,
--- NOTE | 2022-07-14 12:32 | HMH.RHREAS ---
Rehab Reassessment Rehab OP Re-assessment Start: 07/14/22 12:22 Freq: Status: Active Protocol: Document 07/14/22 12:22 KO (Rec: 07/14/22 12:31 KO [id number]) E-signed By Zbigniew Dexter, PT Rehab Re-assessment Subjective Subjective Pt reports less pain in B LE, 5/10 at worst. However, he does c/o continued feelings of angina with exertion and weakness/pain in B upper thighs and hips. Both of these problems result in significant inability to transfer and frequent falls per his report. Objective Objective Notes Circumferential Measaurements: R LE total is 170.9 cm L LE total is 175.2 cm 1/4 TTP noted in B LE in gaiter area, 1+ pitting edema to B lower legs, but continued 2+ pitting edema in B ankle and feet. Assessment Progress Assessment Slower Than Expected Assessment Notes Pt increasing angina with exertion significantly decreases pt ability to perform edema reduction exercises. Overall edema is somewhat reduced, but 2+ pitting edema remains in B feet and ankles. Increased edema is significant barrier to all ADLs and functional transfers. Pt continues to need skilled interventions to return to prior level of function. Patient goals met ST,3,4,[address] LT,2,3,4,5,6,7,8 ,9 Revised Goals none Plan Plan Continue per initial POC. Frequency of Therapy 2 x/wk Duration of therapy 4 wks Time and Billing Re-Eval Time 16 Re-Eval Billing Units 1 PHYSICIAN CERTIFICATION: I certify the specified therapy services for Jeronimo Luis are required, authorized, and reviewed every 30 days.
--- NOTE | 2022-08-10 08:27 | HMH.RHREAS ---
Rehab Reassessment Rehab OP Re-assessment Start: 07/14/22 12:22 Freq: Status: Active Protocol: Document 08/10/22 08:24 KO (Rec: 08/10/22 08:27 PHOLATONYA [id number]) E-signed By Zbigniew Dexter, PT Rehab Re-assessment Subjective Subjective Pt reports less pain overall, 3/10 this date. He does reports new onset of nausea associated with taking new medication (Ozempic). Objective Objective Notes Circumferential Measurements: R LE total is 167.5 cm which is -3.4 cm since last RA. L LE total is 168.1 cm which is -7.1 cm since last RA. TTP: 02/24 B lower legs. Edema: 2+ pitting edema remains to B lower legs to the feet. Assessment Assessment Notes Overall edema is somewhat reduced, but 2+ pitting edema remains in B feet and ankles. Increased edema is significant barrier to all ADLs and functional transfers. Pt continues to need skilled interventions to return to prior level of function. Less Angina noted overall in past 2 -3 wks. Patient goals met ST,2,3,4,5 Goals Not Met LT,2,3,4,5,6,7,8,9 Revised Goals none Plan Plan Continue per initial POC. Frequency of Therapy 2 x/wk Duration of therapy 4 wks Time and Billing Re-Eval Time 14 Re-Eval Billing Units 1 PHYSICIAN CERTIFICATION: I certify the specified therapy services for Jeronimo Luis are required, authorized, and reviewed every 30 days.
--- NOTE | 2022-09-09 15:14 | HMH.RHREAS ---
Rehab Reassessment Rehab OP Re-assessment Start: 07/14/22 12:22 Freq: Status: Active Protocol: Document 09/09/22 15:09 KO (Rec: 09/09/22 15:14 PHORROBER [id number]) E-signed By Zbigniew Dexter, PT Rehab Re-assessment Subjective Subjective My legs don't hurt at night like they used to, I can sleep so much better now. Objective Objective Notes Circumferential Measurements: R LE total is 158.6 cm which is -12.3 cm since last RA. L LE total is 164.2 cm which is -11.0 cm since last RA. TTP: 0/4 B lower legs. Edema: 1+ pitting edema remains to B feet. Assessment Progress Assessment Progressing as Expected Assessment Notes Pt has shown significant improvement in B LE edema which has led to improved sleeping, walking, and ADLs. He has minimal discomfort at worst in B LE and is able to perform more exercise than prior to treatment. Patient goals met ST,2,3,4,5 LT,2,3,4,5,6,7,8, Goals Not Met LT Revised Goals none Plan Plan Will d/c at this time to concentrate of therapeutic exercise program. Frequency of Therapy 0 Duration of therapy 0 Time and Billing Re-Eval Time 15 Re-Eval Billing Units 1 PHYSICIAN CERTIFICATION: I certify the specified therapy services for Jeronimo Luis are required, authorized, and reviewed every 30 days.
== END 2022-09-09 10:05 | disposition home or self-care (01) ==
LOC: PT 10:00
PROVIDERS: PCP Nurse Practitioner Family; Visit Provider Nurse Practitioner Family
DX: R60.0 Localized edema (principal)
CPT/HCPCS: 97140; 97162; 97164

== ENCOUNTER 2022-09-29 11:00 | Outpatient (RCR) | payer MEDICARE, SELFPAY ==
--- NOTE | 2022-07-29 10:08 | HMH.PTOPEV ---
PT Outpatient Evaluation Rehab PT Outpatient Evaluation Start: 07/29/22 09:50 Freq: Status: Active Protocol: Document 07/29/22 09:50 CARLOS (Rec: 07/29/22 10:06 CARLOS [id number]) E-signed By Dave Palma, PT Outpatient Therapy Subjective History Subjective History Patient is a 71 year old male presenting to outpatient PT with reports of BLE weakness and poor balance that has progressively gotten worse over the past 6-8 months. Patient reports 3-4 falls over the past 6 months secondary to loss of balance. Patient experiences dizziness with ambulation and changing of directions. He has recently experienced an increase in NT secondary to diabetic neuropathy. Chief Complaint Weakness Symptom Type Numbness,Tingling Symptoms Relieved By Rest/Positioning Symptoms Aggravated By Standing,Physical Activity, Walking Prior Functional Limitations None Current Functional Limitations Housework,Standing,Recreation Activity,Walking,Stairs, Balance Hip/Knee Eval MMT bilateral Hip Flexion Strength Grade 4- Good- Hip Abduction Strength Grade 4- Good- Hip Adduction Strength Grade 4- Good- Hip Extension Strength Grade 4- Good- Hip External Rotation Strength Grade 4- Good- Hip Internal Rotation Strength Grade 4- Good- Knee Extension Strength Grade 4 Good Knee Flexion Strength Grade 4- Good- ROM Hip ROM Reason Not Measured Within Functional Limits Knee ROM Reason Not Measured Within Functional Limits Ankle/Foot Eval ROM Ankle/Foot ROM Reason Not Measured Within Functional Limits Great Toe ROM Reason Not Measured Within Functional Limits MMT Ankle Dorsiflexion Strength Grade 4- Good- Ankle Plantarflexion Strength Grade 4- Good- Foot Eversion Strength Grade 4- Good- Foot Inversion Strength Grade 4- Good- Dynamic Gait Index Test Protocol Gait Level Surface Mild Impairment Query Text: Instructions: Walk at your normal speed from here to the next divine (20'). Grading: Divine the lowest category that applies. Change in Gait Speed Mild Impairment Query Text: Instructions: Begin walking at your normal pace (for 5'), when I tell you go , walk as fast as you can (for 5'). When I tell you slow , walk as slow
--- NOTE | 2022-09-03 10:10 | HMH.RHREAS ---
Rehab Reassessment Rehab OP Re-assessment Start: 07/29/22 09:50 Freq: Status: Active Protocol: Document 09/03/22 10:04 CARLOS (Rec: 09/03/22 10:10 CARLOS [id number]) E-signed By Dave Palma, PT Rehab Re-assessment Subjective Subjective Patient reports 50% improvement since start of care. Objective Objective Notes BLE AROM: WFL BLE MMT: hip flx 4/5; hip abd/ ER/IR 4+/5; hip add/ext 4-/5; knee flx/ext 4/5 Pain: 1/10 today; 4/10 at worst over past week Neuro: WNL Assessment Progress Assessment Progressing as Expected Assessment Notes Patient would benefit from continuing skilled PT services in order to progress strengthening to improve functional limitations with all standing, ambulatory, bending and lifting activities . Patient goals met STG's Goals Not Met LTG's Revised Goals NA Plan Plan Continue with current POC. Frequency of Therapy 2x/week Duration of therapy 4 weeks Time and Billing Re-Eval Time 16 Re-Eval Billing Units 1 PHYSICIAN CERTIFICATION: I certify the specified therapy services for Jeronimo Luis are required, authorized, and reviewed every 30 days.
== END 2022-09-29 11:05 | disposition home or self-care (01) ==
LOC: PT 11:00
PROVIDERS: PCP Nurse Practitioner Family; Visit Provider Nurse Practitioner Family
DX: M62.81 Muscle weakness (generalized) (principal)
CPT/HCPCS: 97110; 97112; 97163; 97164; 97530

== ENCOUNTER → 2022-10-13 15:25 | Outpatient (CLI) | payer MEDICARE, SELFPAY ==
--- NOTE | 2022-10-13 15:30 | XR_ITS ---
FINAL REPORT CLINICAL HISTORY: Rt shoulder pain, detention. No known injury. COMPARISON: 06/22/2022 FINDINGS: RIGHT SHOULDER Three views demonstrate no acute fracture or dislocation. There are moderate hypertrophic changes of the AC joint. The visualized joint spaces are normally aligned. The soft tissues are unremarkable. IMPRESSION: Mild degenerative changes without acute process. Reviewed, Interpreted and Dictated by Da Zazueta MD Transcribed by Marika Mccullough Authenticated and [facility]
== END ==
PROVIDERS: PCP Nurse Practitioner Family; Visit Provider Orthopaedic Surgery
DX: M19.011 Primary osteoarthritis, right shoulder (principal)
CPT/HCPCS: 73030

== ENCOUNTER 2022-10-20 10:56 | Outpatient (RCR) | payer MEDICARE, SELFPAY | END 2022-10-20 10:58 | disposition home or self-care (01) | LOC: OT 10:56 | PROVIDERS: PCP Nurse Practitioner Family; Visit Provider Orthopaedic Surgery | DX: S46.011A Strain of muscle(s) and tendon(s) of the rotator cuff of right shoulder, initial encounter (principal) | CPT/HCPCS: 97165 ==

== ENCOUNTER 2023-01-09 17:32 | Emergency (ER) | payer MEDICARE, SELFPAY ==
[2023-01-09 17:33] VITALS: BP 110/72; PULSE 92; RESP 20; TEMP 36.4; O2SAT 97; BMI 32.8
--- NOTE | 2023-01-09 17:51 | PC.NURSE ---
Dr. Gonzales at [facility] for pt eval
--- NOTE | 2023-01-09 17:56 | HMH.EDGENADL ---
Discharge Plan Disposition Patient Disposition: Home, Self-Care Chief Complaint: Dental/Oral Prescriptions Prescriptions: No Action esomeprazole magnesium 40 mg capsule,delayed release(DR/EC) 40 mg PO DAILY Ozempic 0.25 mg or 0.5 mg (2 mg/3 mL) pen injector 0.25 mg SQ Synjardy XR 25-1,000 mg tablet, IR - ER, biphasic 24hr 1 tab PO DAILY Hold Instructions: Resume on 11/29/21. Hold for 48 hours nitroglycerin 0.4 mg tablet, sublingual 0.4 mg SUBLINGUAL Q5M PRN (Reason: Chest Pain) Rx Instructions: until response; do not exceed 3 doses per episode finasteride 5 mg tablet 5 mg PO DAILY clopidogrel 75 mg tablet 75 mg PO DAILY Qty: 90 3RF ranolazine 1,000 mg tablet extended release 12 hr 1,000 mg PO BID Qty: 180 1RF atenolol 50 mg tablet See Rx Instructions .ROUTE .COMPLEX Qty: 90 3RF Dose Instruction: TAKE ONE TABLET BY MOUTH EVERY DAY Rx Instructions: TAKE ONE TABLET BY MOUTH EVERY DAY rosuvastatin 40 mg tablet See Rx Instructions .ROUTE .COMPLEX Qty: 90 3RF Dose Instruction: TAKE ONE TABLET BY MOUTH EVERY DAY AT BEDTIME FOR cholesterol Rx Instructions: TAKE ONE TABLET BY MOUTH EVERY DAY AT BEDTIME FOR cholesterol Entresto 24-26 mg tablet 1 tab PO BID Qty: 180 1RF glimepiride 2 MG tablet 2 mg PO DAILY tamsulosin 0.4 MG capsule 0.4 mg PO HS gabapentin 100 mg capsule 300 mg PO BID aspirin [Enteric Coated Aspirin] 81 mg Tablet,Delayed Release (Dr/Ec) 81 mg PO DAILY Qty: 30 3RF Referrals Follow up/Referrals: Aimee Ulloa APRN [Primary Care Provider] - See instructions Activity Restrictions/Add. Instructions Additional Instructions/Restrictions: At this time it was felt you are safe to be discharged home. If new or worsening symptoms please do not hesitate to return the emergency department. Please drink cold liquids tonight and do not chew hard food. Clinical Impressions Clinical Impression: Open tongue wound Discharge ED Provider: Gustavo Gonzales General Adult HPI General Chief complaint: Dental/Oral Stated complaint: AO 01/09 @1632 Bit tongue Time Seen by Provider: 01/09/23 17:37 Mode of Arrival: Ambulatory Source of Information: Patient Limitations: No Limitations Description of Symptoms (Recalled from ER Triage Doc. by RN): pt was sitting at dinner table and eating like normal and bit his tongue. pt didnt think anything of it however he continued to ooze blood for 30 minutes and became concerned. pt takes ASA and plavix and has a single wound in middle of tongue that is not actively bleeding at this time History of Present Illness HPI narrative: Patient is a 72-year-old male with no pertinent past medical history presents emergency department after biting his tongue. Patient was eating dinner when he accidentally bit the dorsal aspect of his tongue which has been bleeding ever since. It has been refractory to pressure causing him to present here for continued evaluation. He is on dual antiplatelet therapy however no anticoagulants. No other acute complaints at this time. Related Data Home Medications Medication Instructions Recorded Confirmed empagliflozin 25 mg-metformin ER 1 tab PO DAILY Diabetes 04/16/19 11/16/22 1,000 mg tablet,extended release 24hr (Synjardy XR) nitroglycerin 0.4 mg sublingual 0.4 mg sublingual Q5M PRN Chest 04/16/19 11/16/22 tablet Pain glimepiride 2 mg tablet 2 mg PO DAILY Diabetes 05/13/20 11/16/22 tamsulosin 0.4 mg capsule 0.4 mg PO HS BPH 05/13/20 11/16/22 esomeprazole magnesium 40 mg 40 mg PO DAILY acid reflux 08/20/20 11/16/22 capsule,delayed release finasteride 5 mg tablet 5 mg PO DAILY urinateion 05/07/21 11/16/22 gabapentin 100 mg capsule 300 mg PO BID Pain 05/07/21 11/16/22 semaglutide 0.25 mg or 0.5 mg (2 0.25 mg SQ 08/13/22 11/16/22 mg/3 mL) subcutaneous pen injector (Ozempic) Previous Rx's Medication Instructions Recor
[2023-01-09 18:00] VITALS: BP 106/72; PULSE 90; RESP 20; O2SAT 96
[2023-01-09 18:47] VITALS: BP 120/72; PULSE 89; RESP 20; TEMP 36.7; O2SAT 97
== END 2023-01-09 18:49 | disposition home or self-care (01) ==
PROVIDERS: Emergency Provider Emergency Medicine; PCP Nurse Practitioner Family
DX: S01.502A Unspecified open wound of oral cavity, initial encounter (principal); E11.40 Type 2 diabetes mellitus with diabetic neuropathy, unspecified; I25.119 Atherosclerotic heart disease of native coronary artery with unspecified angina pectoris; I11.9 Hypertensive heart disease without heart failure; E78.5 Hyperlipidemia, unspecified; Z79.84 Long term (current) use of oral hypoglycemic drugs; Z87.891 Personal history of nicotine dependence; Z95.5 Presence of coronary angioplasty implant and graft; X58.XXXA Exposure to other specified factors, initial encounter
CPT/HCPCS: 99283

== ENCOUNTER 2023-01-26 10:00 | Outpatient (RCR) | payer MEDICARE, SELFPAY ==
--- NOTE | 2022-11-23 11:59 | HMH.PTOPWND ---
Rehab Outpt Wound Evaluation Rehab OP Wound Evaluation Start: 11/23/22 11:48 Freq: Status: Active Protocol: Document 11/23/22 11:49 KO (Rec: 11/23/22 11:59 PHOLATONYA [id number]) E-signed By Zbigniew Dexter, PT Subjective/History History History This is the initial PT eval for Jeronimo Luis 71 yowm who presents with B LE edema for several years, but worse x 1 mo this episode. He reports being prescribed Ozempic ~ 3 mos ago, but is unsure if this medication has worsened his edema. He is well known to this clinic and had previous success with edema reduction. He has significant hx of cardiac issues with CAD, CABG x 4 v, stents x 5 and reduced EF, R LE vein harvest for CABG , DM, CVI. Subjective Subjective Current pain is 5/10 in B LE, at worst 8/10. He reports intermittently increased numbness and tingling in B feet. 3+ pitting edema noted to B LE. 3/4 TTP noted to B LE . R LE with 3 small open sores ~0.2 cm x 0.2 cm x 0.1 cm with increased serous drainage noted. New diagnosis of cancer in past 12 No months? Lymphedema Eval Classification of Lymphedema Secondary Lymphedema Yes Stemmer's sign Stemmer's Sign yes Stage of Lymphedema Lymphedema stages Stage II (Pitting edema, increased fibrosis w/ decreased pitting) Skin Changes Dry Skin Yes Taut, Shiny Skin Yes Skin Folds Yes Redness Yes Wounds Yes Brittle Uneven Nails Yes Discoloration of Skin Yes Other Changes Yes Pain Scale Pain Scale (0-10) 8 Affected Extremities Areas Affected by Lymphedema/Edema Right Lower Extremity,Left Lower Extremity Manual Lymphatic Drainage Treatment Area MLD Treatment Area Right Lower Extremity,Left Lower Extremity Wound Problems/Impairments Impairments Problems/Impairmments Palpation Tenderness,Impaired Range of Motion,Impaired Endurance,Impaired Walking, Impaired Standing,Impaired Shower/Bathing,Impaired Household Care,Impaired Recreational Activities, Increased Edema,Lymphedema Present,Wound Care Needs, Subjective C/O Pain,Impaired Self Care/Self Management Prognosis Rehab Potential Good Clinical Impression Consistent with Diagnosis Yes Short Term Goals Number of Weeks 4 Decreased Palpation Tenderness Yes: 2/4 B LE Decrease Edema Yes: 2+ pitting edema Decrease Wound Area Yes: by 100% Decrease Subjective C/O Pain Yes: 05/31 Patient to Understand Lymphedema Yes Treatment and Exercises Decrease Girth Measurments by (cm) Yes: B LE total by 5 cm ea Prison Goals Number of Weeks 6-8 Decreased Palpation Tenderness Yes: 02/24 B LE Decrease Edema Yes: 1+ pitting edema Decrease Lymphedema Yes: Minimal fibrotic edema Decrease Subjective C/O Pain Yes: 04/02 Patient to be Ind w/ HEP Yes Patient to be Ind w/ [place] Yes Compression Garments Patient to Adhere Lymphedema Precautions Yes Decrease Girth Measurments by (cm) Yes: B LE total by 20 cm ea Outpatient Therapy Plan of Care Treatment Plan May Include Therapeutic Exercise Including Home Yes Exercise Program Manual Therapy Techniques Yes Neuromuscular Re-education Yes Therapeutic Activities to Return to Yes Previous Functional/Work Level ADL/Self Care Education Yes Orthotics/Bracing/Splinting Yes Vasopneumatic Compression Pump Yes Manual Lymphatic Drainage Yes Wound Care Yes Eval/Re-Eval Yes Frequency Times per week 2 Duration Number of Weeks 6-8 Addendums This patient is a candidate for social No or vocational rehab? Patient/Guardian verbally acknowledges Yes understanding of treatment program and consents to further treatment? Patient/Guardian verbally acknowledges Yes understanding of diagnosis, prognosis and goals for treatment? Eval Complexity PT Charges 41907 - High Complexity PHYSICIAN CERTIFICATION: I certify the specified therapy services for Jeronimo Luis are required, authorized, and reviewed every 30 days.
--- NOTE | 2022-12-21 12:17 | HMH.RHREAS ---
Rehab Reassessment Rehab OP Re-assessment Start: 11/23/22 11:48 Freq: Status: Active Protocol: Document 12/21/22 12:12 PHOLATONYA (Rec: 12/21/22 12:17 PHORROBER [id number]) E-signed By Zbigniew Dexter, PT Rehab Re-assessment Subjective Subjective Pt reports less pain overall, currently 04/30. He reports feeling much less edema in his legs, but L foot seems to stay more swollen. Objective Objective Notes Circumferential Measurements: R LE total is 192.9 cm which is - 4.7 cm since IE. L LE total is 198.6 cm which is -2.2 cm since IE. TTP: 02/24 B LE Edema: 2+ pitting edema to B lower legs, No fibrotic edema. Wound: No open sores noted at this time, all wounds 100% healed. Assessment Progress Assessment Progressing as Expected Assessment Notes Pt has shown significant improvements in pain and palpation tenderness, but only mild improvements in overall edema based on LE circumferential measurements. He continues to need skilled intervention to return to prior level of function. Patient goals met ST,2,3,4,5 LT,[address] LT,4,5,6,7,8 Plan Plan Continue per initial POC. Frequency of Therapy 1-2 x/wk Duration of therapy 4 wks Time and Billing Re-Eval Time 13 Re-Eval Billing Units 1 PHYSICIAN CERTIFICATION: I certify the specified therapy services for Jeronimo Luis are required, authorized, and reviewed every 30 days.
--- NOTE | 2023-01-26 10:58 | HMH.RHREAS ---
Rehab Reassessment Rehab OP Re-assessment Start: 11/23/22 11:48 Freq: Status: Active Protocol: Document 01/26/23 10:55 OK (Rec: 01/26/23 10:58 KO [id number]) E-signed By Zbigniew Dexter, PT Rehab Re-assessment Subjective Subjective Pt reports pain only at night. I think it's my neuropathy that makes it worse. Objective Objective Notes Circumferential Measurements: R LE total is 193.5 cm which is - 4.1 cm since IE. L LE total is 197.6 cm which is -3.2 cm since IE. TTP: 02/24 B LE Edema: 1+ pitting edema to B lower legs, No fibrotic edema. Wound: No open sores noted at this time, all wounds 100% healed. Assessment Progress Assessment Progressing as Expected Assessment Notes Pt has shown significant improvements in pain and palpation tenderness, but only mild improvements in overall edema based on LE circumferential measurements. He continues to need skilled intervention to return to prior level of function. Patient goals met ST,2,3,4,5 LT,[address] LT,4,5,6,7,8 Plan Plan Will D/C to home program at this time. Frequency of Therapy 0 Duration of therapy 0 Time and Billing Re-Eval Time 14 Re-Eval Billing Units 1 PHYSICIAN CERTIFICATION: I certify the specified therapy services for Jeronimo Luis are required, authorized, and reviewed every 30 days.
== END 2023-01-26 11:20 | disposition home or self-care (01) ==
LOC: PT 10:00
PROVIDERS: PCP Nurse Practitioner Family; Visit Provider Nurse Practitioner Family
DX: I89.0 Lymphedema, not elsewhere classified (principal)
CPT/HCPCS: 97140; 97163; 97164

== ENCOUNTER → 2023-02-11 09:09 | Outpatient (CLI) | payer MEDICARE, SELFPAY ==
[2023-02-11 10:51] LABS: Chloride 99 mmol/L (98-107); Potassium 4.5 mmoL/L (3.5-5.1); Sodium 136 mmol/L (136-145)
[2023-02-11 10:53] LABS: Blood Urea Nitrogen 16 mg/dl (9-20); Estimated Glomerular Filt Rate 94 ml/min (>60); GFR (African American) 114 ML/MIN (>60)
[2023-02-11 10:54] LABS: Alanine Aminotransferase 24 U/L (12-78); Albumin Level 4.4 g/dl (3.5-5.0); Albumin/Globulin Ratio 1.8 (1.1-1.8); Alkaline Phosphatase 54 U/L (38-126); Anion Gap 15.5 mEq/L (5-15); Aspartate Amino Transferase 23 U/L (17-59); Bilirubin,Total 0.7 mg/dl (0.2-1.3); Calcium 8.9 mg/dl (8.4-10.2); Carbon Dioxide 26 mmol/L (22.0-30.0); Cholesterol 189 mg/dl (140-200); Globulin 2.5 g/dL (1.3-3.2); Glucose 107 mg/dl (74-100); Total Protein,Serum 6.9 g/dl (6.3-8.2); Triglycerides 229 mg/dl (30-150); VLDL Cholesterol 46 mg/dL (0-40)
[2023-02-11 10:55] LABS: Chol/HDL Ratio 3.4 (1-3.5); HDL Cholesterol 55 mg/dl (40-60)
[2023-02-11 11:04] LABS: Direct LDL Cholesterol 87.74 mg/dL (100-129)
[2023-02-11 11:05] LABS: Creatinine,Urine Random 61 mg/dL (Not Estab.)
[2023-02-11 11:41] LABS: Prostate Specific Ag, Diagnost 1.26 ng/ml (0.0-4.0)
[2023-02-11 12:13] LABS: Hemoglobin A1C 5.9 % (4.0-6.0)
== END ==
PROVIDERS: PCP Nurse Practitioner Family; Visit Provider Nurse Practitioner Family
DX: E11.40 Type 2 diabetes mellitus with diabetic neuropathy, unspecified (principal); N40.0 Benign prostatic hyperplasia without lower urinary tract symptoms; E78.2 Mixed hyperlipidemia; Z79.84 Long term (current) use of oral hypoglycemic drugs; Z79.85 Long-term (current) use of injectable non-insulin antidiabetic drugs
CPT/HCPCS: 36415; 80053; 80061; 82043; 82570; 83036; 84153

== ENCOUNTER 2023-06-22 07:57 | Outpatient (RCR) | payer MEDICARE, SELFPAY ==
--- NOTE | 2023-06-22 09:05 | HMH.PTOPWND ---
Rehab Outpt Wound Evaluation Rehab OP Wound Evaluation Start: 06/22/23 08:51 Freq: Status: Active Protocol: Document 06/22/23 08:52 KO (Rec: 06/22/23 09:03 PHOLATONYA [id number]) E-signed By Zbigniew Dexter, PT Subjective/History History History This is the initial PT eval for Jeronimo Luis, 72 yowm who presents with c/o increased B LE edema x ~ 2-3 wks. He reports, I started to swell up a little bit, but I went back to using my lymphedema pump every day and it seems like it's gone down again. He reports continued intermittent worsening of numbness and tingling and pain in B lower legs and feet. He c/o much more about poor balance than his edema this date. He has hx of CAD with MA x 3, CABG and stents, as well as DM with neuropathy. Subjective Subjective He reports no pain at this time, 8/10 pain at worst. Currently 1+ pitting edema to B ankles and feet noted. Minimal blanchable erythema. New diagnosis of cancer in past 12 No months? Lymphedema Eval Classification of Lymphedema Secondary Lymphedema Yes Stemmer's sign Stemmer's Sign no Stage of Lymphedema Lymphedema stages Stage I (Pitting edema, reduces w/ elevation, no fibrosis) Skin Changes Dry Skin Yes Taut, Shiny Skin Yes Redness Yes Discoloration of Skin Yes Other Changes Yes Pain Scale Pain Scale (0-10) 8 Affected Extremities Areas Affected by Lymphedema/Edema Right Lower Extremity,Left Lower Extremity Manual Lymphatic Drainage Treatment Area MLD Treatment Area Right Lower Extremity,Left Lower Extremity Wound Problems/Impairments Impairments Problems/Impairmments Palpation Tenderness,Impaired Endurance,Impaired Walking, Impaired Standing,Impaired Household Care,Increased Edema ,Lymphedema Present,Subjective C/O Pain,Impaired Self Care/ Self Management Prognosis Rehab Potential Good Clinical Impression Consistent with Diagnosis Yes Short Term Goals Number of Weeks 2 Decreased Palpation Tenderness Yes: 1/4 B LE Decrease Edema Yes: no pitting edema B LE Decrease Subjective C/O Pain Yes: 6/10 at worst Patient to Understand Lymphedema Yes Treatment and Exercises Vocational Rehab Consultant Goals Number of Weeks 4 Decreased Palpation Tenderness Yes: 0/4 B LE Decrease Lymphedema Yes: No fibrotic edema B LE Decrease Subjective C/O Pain Yes: 4/10 at worst Patient to be Ind w/ HEP Yes Patient to Adhere Lymphedema Precautions Yes Outpatient Therapy Plan of Care Treatment Plan May Include Therapeutic Exercise Including Home Yes Exercise Program Manual Therapy Techniques Yes Neuromuscular Re-education Yes Therapeutic Activities to Return to Yes Previous Functional/Work Level ADL/Self Care Education Yes Orthotics/Bracing/Splinting Yes Vasopneumatic Compression Pump Yes Manual Lymphatic Drainage Yes Eval/Re-Eval Yes Frequency Times per week 1-2 Duration Number of Weeks 4 Addendums This patient is a candidate for social No or vocational rehab? Patient/Guardian verbally acknowledges Yes understanding of treatment program and consents to further treatment? Patient/Guardian verbally acknowledges Yes understanding of diagnosis, prognosis and goals for treatment? Eval Complexity PT Charges 49155 - High Complexity PHYSICIAN CERTIFICATION: I certify the specified therapy services for Jeronimo Luis are required, authorized, and reviewed every 30 days.
== END 2023-06-22 07:59 | disposition home or self-care (01) ==
LOC: PT 07:57
PROVIDERS: Visit Provider Nurse Practitioner Family
DX: I89.0 Lymphedema, not elsewhere classified (principal)
CPT/HCPCS: 97163

== ENCOUNTER 2024-05-16 07:14 | Outpatient (CLI) | payer MEDICARE, SELFPAY ==
[2024-05-16 07:29] LABS: Basophils % 0.2 % (0.1-2.0); Eosinophils # 0.1 K/mm3 (0.0-0.4); Eosinophils % 1.6 % (0.1-12.0); Hematocrit 49.3 % (42.0-52.0); Hemoglobin 16.3 g/dL (14.1-18.0); Lymphocytes # 1.6 K/mm3 (0.7-4.5); Lymphocytes % 29.3 % (10-50); Mean Corpuscular HGB Conc 33.1 g/dL (31.8-35.4); Mean Corpuscular Hemoglobin 30.9 pg (27.0-31.2); Mean Corpuscular Volume 93.4 fl (80-94); Mean Platelet Volume 9.4 fl (7.4-10.4); Monocytes # 0.9 K/mm3 (0.1-1.0); Monocytes % 16.5 % (1.7-9.3); Neutrophils # 2.8 K/mm3 (1.8-7.8); Neutrophils % 51.5 % (37.0-80.0); Platelet Count 88 K/mm3 (142-424); Red Blood Count 5.28 M/mm3 (4.60-6.20); Red Cell Distribution Width 14.2 % (11.5-17.5); White Blood Count 5.5 K/mm3 (4.8-10.8)
[2024-05-16 08:39] LABS: Alanine Aminotransferase 61 U/L (12-78); Albumin Level 4.2 g/dl (3.5-5.0); Albumin/Globulin Ratio 1.6 (1.1-1.8); Alkaline Phosphatase 33 U/L (38-126); Aspartate Amino Transferase 46 U/L (17-59); Bilirubin,Total 0.9 mg/dl (0.2-1.3); Blood Urea Nitrogen 23 mg/dl (9-20); Calcium 9.3 mg/dl (8.4-10.2); Carbon Dioxide 27 mmol/L (22.0-30.0); Chol/HDL Ratio 2.6 (1-3.5); Cholesterol 193 mg/dl (140-200); Creatine Kinase 68 U/L (55-170); Estimated Glomerular Filt Rate 73 ml/min (>60); GFR (African American) 88 ML/MIN (>60); Globulin 2.6 g/dL (1.3-3.2); Glucose 120 mg/dl (74-100); HDL Cholesterol 75 mg/dl (40-60); Magnesium 2.2 mg/dl (1.6-2.3); Potassium 4.5 mmoL/L (3.5-5.1); Sodium 137 mmol/L (136-145); Total Protein,Serum 6.8 g/dl (6.3-8.2); Triglycerides 202 mg/dl (30-150); VLDL Cholesterol 40 mg/dL (0-40)
[2024-05-16 08:40] LABS: Erythrocyte Sedimentation Rate 9 mm/hr (0-20)
[2024-05-16 08:50] LABS: Direct LDL Cholesterol 70.18 mg/dL (100-129)
[2024-05-16 08:56] LABS: 25-OH Vitamin D, Total 24.7 ng/mL (30-100)
[2024-05-16 09:14] LABS: Prostate Specific Ag Screen 1.6 ng/ml (0.0-4.0); Thyroid Stimulating Hormone 6.45 uIU/mL (0.465-4.68)
[2024-05-16 09:31] LABS: Vitamin B12 487 pg/mL (239-931)
[2024-05-16 09:44] LABS: Anion Gap 12.5 mEq/L (5-15); Chloride 102 mmol/L (98-107)
[2024-05-16 10:31] LABS: Ferritin 192 ng/ml (17.9-464)
== END 2024-05-16 23:59 | disposition home or self-care (01) ==
LOC: LAB 07:15
PROVIDERS: PCP Nurse Practitioner Family; Visit Provider Nurse Practitioner Family
DX: E11.40 Type 2 diabetes mellitus with diabetic neuropathy, unspecified (principal); I89.0 Lymphedema, not elsewhere classified; R97.20 Elevated prostate specific antigen [PSA]; I50.42 Chronic combined systolic (congestive) and diastolic (congestive) heart failure; M62.81 Muscle weakness (generalized)
CPT/HCPCS: 36415; 80053; 80061; 82306; 82533; 82550; 82607; 82728; 82746; 83036; 83735; 84443; 85025; 85651; 86140; G0103

== ENCOUNTER 2024-05-25 13:24 | Outpatient (CLI) | payer MEDICARE, SELFPAY ==
--- NOTE | 2024-05-25 13:29 | MR_ITS ---
FINAL REPORT TECHNIQUE: Multiplanar MR, without and with contrast administration CLINICAL HISTORY: EPISODE OF INSTABILITY. ATAXIA, WEAKNESS FINDINGS: Diffusion sequences show no signal abnormalities to indicate acute infarct. There is moderate generalized atrophy. Periventricular white matter signal changes are seen in both hemispheres compatible with mild chronic microvascular disease. Ventricles are normal. No edema or hemorrhage is seen. Major vessel flow-voids are intact. There is right ethmoid sinusitis. Following contrast administration, there is no mass or abnormal parenchymal enhancement. IMPRESSION: No acute infarct or mass. No evidence of hydrocephalus. Mild chronic microvascular changes. Reviewed, Interpreted and Dictated by Marta Bell MD Transcribed by Naye Tam Authenticated and [facility]
[2024-05-25] MEDS: GADOTERIDOL INJ 20ML SYRINGE 19 ML IV (14:40)
[2024-05-25] MEDS: SODIUM CHLORIDE 0.9% 10ML SYR (RAD ONLY) 10 ML IV (14:40)
== END 2024-05-25 23:59 | disposition home or self-care (01) ==
LOC: RAD 13:25
PROVIDERS: PCP Nurse Practitioner Family; Visit Provider Nurse Practitioner Family
DX: R27.0 Ataxia, unspecified (principal); M62.81 Muscle weakness (generalized)
CPT/HCPCS: 70553; A9576

== ENCOUNTER 2024-06-06 14:21 | Outpatient (CLI) | payer MEDICARE, SELFPAY ==
[2024-06-06 14:58] LABS: Basophils % 0.2 % (0.1-2.0); Eosinophils # 0.1 K/mm3 (0.0-0.4); Eosinophils % 2.3 % (0.1-12.0); Hematocrit 45.1 % (42.0-52.0); Hemoglobin 15.1 g/dL (14.1-18.0); Lymphocytes % 33.6 % (10-50); Mean Corpuscular HGB Conc 33.5 g/dL (31.8-35.4); Mean Corpuscular Hemoglobin 30.8 pg (27.0-31.2); Mean Corpuscular Volume 91.9 fl (80-94); Mean Platelet Volume 9.6 fl (7.4-10.4); Monocytes # 0.7 K/mm3 (0.1-1.0); Neutrophils # 3.2 K/mm3 (1.8-7.8); Neutrophils % 52.6 % (37.0-80.0); Nucleated Red Blood Cells # 0 10^3/uL; Nucleated Red Blood Cells % 0 %; Platelet Count 146 K/mm3 (142-424); Red Blood Count 4.91 M/mm3 (4.60-6.20); Red Cell Distribution Width 13.8 % (11.5-17.5); White Blood Count 6.1 K/mm3 (4.8-10.8)
[2024-06-06 16:50] LABS: Alanine Aminotransferase 30 U/L (12-78); Albumin Level 4.3 g/dl (3.5-5.0); Albumin/Globulin Ratio 1.5 (1.1-1.8); Alkaline Phosphatase 52 U/L (38-126); Anion Gap 18.3 mEq/L (5-15); Aspartate Amino Transferase 24 U/L (17-59); Bilirubin,Total 0.8 mg/dl (0.2-1.3); Blood Urea Nitrogen 17 mg/dl (9-20); Carbon Dioxide 23 mmol/L (22.0-30.0); Chloride 98 mmol/L (98-107); Estimated Glomerular Filt Rate 82 ml/min (>60); GFR (African American) 100 ML/MIN (>60); Globulin 2.9 g/dL (1.3-3.2); Glucose 107 mg/dl (74-100); Potassium 4.3 mmoL/L (3.5-5.1); Sodium 135 mmol/L (136-145); Total Protein,Serum 7.2 g/dl (6.3-8.2)
[2024-06-08 14:26] LABS: Peripheral Smear Review Scanned Result
== END 2024-06-06 23:59 | disposition home or self-care (01) ==
LOC: LAB 14:22
PROVIDERS: PCP Nurse Practitioner Family; Visit Provider Internal Medicine Medical Oncology
DX: D69.6 Thrombocytopenia, unspecified (principal)
CPT/HCPCS: 36415; 80053; 82746; 85025

== ENCOUNTER 2024-06-20 10:00 | Outpatient (RCR) | payer MEDICARE, SELFPAY ==
--- NOTE | 2024-06-11 16:35 | HMH.PTOPEV ---
PT Outpatient Evaluation Rehab PT Outpatient Evaluation Start: 06/11/24 15:57 Freq: Status: Active Protocol: Document 06/11/24 15:57 KO (Rec: 06/11/24 16:34 PHORROBER [id number]) E-signed By Zbigniew Dexter, PT Outpatient Therapy Subjective History Subjective History This is the initial PT eval for Jeronimo Luis, 73 yowm who presents with c/o general weakness and difficulty with ambulation over the past 3-4 wks. He reports an episode several weeks ago where he was unable to stand up from his recliner and it lasted ~ 30 mins before his normal strength returned. He did have MRI of brain to r/o CVA, which was negative. He reports general malaise and low endurance affecting his ability to perform all ADLs. He has PMH of GA x 3, CAD, CABG x 4v, cardiac stents, HTN . Chief Complaint Weakness Symptoms Relieved By Rest/Positioning Symptoms Aggravated By Physical Activity Prior Functional Limitations None Current Functional Limitations Housework,Recreation Activity, Walking Symptom Description Activity Dependent Level of pain today (0-10) 0 Pain scale - at its worst (0-10) 0 Balance Eval Hx of Falls Hx Falls Yes: slipped in the shower: no injuries. Number in last 6 months 1 Gait/Posture Asssessment General Gait Observation Wide Based Gait Assistive Devices None / NA Ankle/Foot Observation in Gait Swing Decreased Foot Clearance Rhomberg Feet Together/Eyes open/Stable Surface pass Feet Together/Eyes Closed/Stable Surface pass Feet Together/Eyes open/Unstable Surface fail Feet Together/Eyes Closed/Unstable fail Surface Tinetti Sitting Balance Sitting Balance Steady, safe Arising from Chair Ability to Arise Able, uses arms to help Attempts to Arise Arises on 1st attempt Standing Balance Immediate Standing Balance Steady w/o support Standing Balance Steady, wide stance Nudged Response Steady Standing with Eyes Closed Steady Turning Step Pattern Turning 360 Degrees Continuous steps Stability Turning 360 Degrees Steady Sitting Down Sitting Down Uses arms or unsteady Gait and Step Initiation of Gait No hesitancy Right Foot Step Length Does pass stance foot Right Foot Step Height Completely clears floor Left Foot Step Length Does pass stance foot Left Foot Step Height Completely clears floor Step Description Step Symmetry Step length appears equal Step Continuity Steps appear continuous Gait Description Path Description Straight Trunk Description No sway Walking Stance Heels apart Scoring and Interpretation Tinetti Composite Score (points) 24 Interpretation of Scores At risk for falls (19-24) Miscellaneous Dx PT Eval Objective Objective TU sec FTSTS: 20 sec RPE: 5 immediately after FTSTS . MMT B LE: HIP FLEX 3+/5, HIP EXT 3+/5, HIP ABD 4/5, KNEE FLEX 4+/5, KNEE EXT 4+/5, Outpatient Therapy Assessment Impairments Problems/Impairmments Impaired Strength,Impaired Endurance,Impaired Gait Pattern,Impaired Walking, Impaired Shower/Bathing, Impaired Household Care, Impaired Recreational Activities,Impaired Balance, Impaired Tinnetti Score, Impaired TUG Time,Increased Edema,Impaired Self Care/Self Management Prognosis Rehab Potential Good Comment Skilled therapy is indicated to improve B hip muscle strength, improve overall gait pattern, improve dynamic balance in standing, and imporve endurance to all activity in order to aid pt return to PLOF with all ADLs. Clinical Impression Consistent with Diagnosis Yes Short Term Goals Number of Weeks 4 Increase Strength Yes: B LE 4/5 throughout at least Increase Endurance Yes: RPE 4 or less with 3 mins of continuous activity. Increase Tinnetti Score Yes: 22 or less Decrease TUG Time Yes: 14 sec or less Patient to be Ind w/ HEP Yes Electric Sign Wirer Goals Number of Weeks 8 Increase Strength Yes: B LE 4+/5 throughout at least Increase Endurance Yes: RPE 3 or less with 10 min of continuous activity. Return to Recreational Activities Yes: without c/o weakness. Increase Tinnetti Score Yes: 19 or less Decrease TUG Time Yes: 12 sec or less Patient to be Ind w/ Advanced HEP Yes Outpatient Therapy Plan of Care Treatment Plan May Include Therapeutic Exercise Including Home Yes Exercise Program Manual Therapy Techniques Yes Neuromuscular Re-education Yes Therapeutic Activities to Return to Yes Previous Functional/Work Level Gait Training Yes ADL/Self Care Education Yes Orthotics/Bracing/Splinting Yes Massage Yes Eval/Re-Eval Yes Frequency Times per week 2 Duration Number of Weeks 8 Addendums This patient is a candidate for social No or vocational rehab? Patient/Guardian verbally acknowledges Yes understanding of treatment program and consents to further treatment? Patient/Guardian verbally acknowledges Yes understanding of diagnosis, prognosis and goals for treatment? Eval Complexity PT Charges 84020 - High Complexity Shoulder/Elbow Eval Shoulder Objective Measurements Elbow Objective Measurements PHYSICIAN CERTIFICATION: I certify the specified therapy services for Jeronimo Nikki Toby are required, authorized, and reviewed every 30 days.
== END 2024-06-20 23:59 | disposition home or self-care (01) ==
LOC: PT 10:00
PROVIDERS: PCP Nurse Practitioner Family; Visit Provider Internal Medicine Adolescent Medicine
DX: R27.0 Ataxia, unspecified (principal)
CPT/HCPCS: 97110; 97163

== ENCOUNTER 2024-07-20 11:00 | Outpatient (RCR) | payer MEDICARE, SELFPAY ==
--- NOTE | 2024-07-12 10:47 | HMH.RHREAS ---
Rehab Reassessment Rehab OP Re-assessment Start: 06/22/24 13:49 Freq: Status: Active Protocol: Document 07/12/24 10:32 KO (Rec: 07/12/24 10:47 PHORROBER [id number]) E-signed By Zbigniew Dexter, PT Tinetti Sitting Balance Sitting Balance Steady, safe Arising from Chair Ability to Arise Able, w/o using arms Attempts to Arise Arises on 1st attempt Standing Balance Immediate Standing Balance Steady w/o support Standing Balance Narrow stance w/o support Nudged Response Steady Standing with Eyes Closed Steady Turning Step Pattern Turning 360 Degrees Continuous steps Stability Turning 360 Degrees Steady Sitting Down Sitting Down Safe, steady Gait and Step Initiation of Gait No hesitancy Right Foot Step Length Does pass stance foot Right Foot Step Height Completely clears floor Left Foot Step Length Does pass stance foot Left Foot Step Height Completely clears floor Step Description Step Symmetry Step length appears equal Step Continuity Steps appear continuous Gait Description Path Description Straight Trunk Description No sway Walking Stance Heels together Scoring and Interpretation Tinetti Composite Score (points) 28 Interpretation of Scores Low risk for falls (>24) Rehab Re-assessment Subjective Subjective Pt reports he feels he is stronger overall, but his balance remains poor, especially with his eyes closed. He feels more comfortable with mobility in general overall. He continues to reports decreased endurance with all activity. Objective Objective Notes RPE: 8/10 with 10 min of continuous activity. TU sec FTSTS: 17 sec MMT B LE: HIP FLEX 4/5, HIP ABD 4/5, KNEE FLEX 4+/5, KNEE EXT 5/5, ANKLE PF 4+/5. Assessment Progress Assessment Progressing as Expected Assessment Notes Pt presents with increased strength, increased endurance to activity, and improve functional balance. He continues to need further improvement in all areas in order to meet goals. Skilled therapy remains indicated in order to return to PLOF with all ambulation and ADLs. Patient goals met ST/5 LT/6 Revised Goals Tinneti goals: STG should be > 25 and LTG should be >27. Plan Plan Continue per initial POC. Frequency of Therapy 2 x/wk Duration of therapy 4 wks Time and Billing Re-Eval Time 12 Re-Eval Billing Units 0 Charge for PT reassessment? No PHYSICIAN CERTIFICATION: I certify the specified therapy services for Jeronimomj Jordan Toby are required, authorized, and reviewed every 30 days.
== END 2024-07-20 23:59 | disposition home or self-care (01) ==
LOC: PT 11:00
PROVIDERS: PCP Nurse Practitioner Family; Visit Provider Internal Medicine Adolescent Medicine
DX: R27.0 Ataxia, unspecified (principal)
CPT/HCPCS: 97110; 97112; 97530

== ENCOUNTER 2024-08-02 10:00 | Outpatient (RCR) | payer MEDICARE, SELFPAY | END 2024-08-02 23:59 | disposition home or self-care (01) | LOC: PT 10:00 | PROVIDERS: PCP Nurse Practitioner Family; Visit Provider Internal Medicine Adolescent Medicine | DX: R27.0 Ataxia, unspecified (principal) | CPT/HCPCS: 97110; 97112 ==